=== PATIENT | female | born 1945 | race Two or more races ===

== ENCOUNTER 2017-09-17 16:22 | Emergency (ER) | payer MEDICARE, OTHER ==
[~2017-09-17] VITALS: Ht 162.6 cm; Wt 60.8 kg
--- NOTE | 2017-09-17 16:35 | NUR ---
BB PRIVATE EMS FROM [facility] FOR ANEMIA H/H-7.4/22.2. PATIENT A/OX 1. BREATHING EVEN AND UNLABORED. NO SOB. VITALS STABLE. SAFETY AND COMFORT MEASURES IN PLACE. AWAITING MD ORDERS.
--- NOTE | 2017-09-17 16:50 | NUR ---
NEW IV STARTED ON RFA, 20 G.
[2017-09-17 16:58] LABS: BASOPHILS # (AUTO) 0.1 /CMM (0.0-0.2); BASOPHILS % (AUTO) 1.3 % (0.0-2.0); EOSINOPHILS # (AUTO) 0.4 /CMM (0.0-0.7); EOSINOPHILS % (AUTO) 3.6 % (0.0-6.0); HEMATOCRIT 27 % (33-45); HEMOGLOBIN 9.4 g/dL (11.5-14.8); LYMPHOCYTES # (AUTO) 2.1 /CMM (0.8-4.8); LYMPHOCYTES % (AUTO) 20.2 % (20.0-44.0); MEAN CORPUSCULAR HEMOGLOBIN 37 PG (26.0-33.0); MEAN CORPUSCULAR HGB CONC 35 g/dl (31.0-36.0); MEAN CORPUSCULAR VOLUME 107 fL (82-100); MONOCYTES # (AUTO) 0.8 /CMM (0.1-1.30); MONOCYTES % (AUTO) 7.2 % (2.0-12.0); NEUTROPHILS # (AUTO) 7.2 /CMM (1.8-8.9); NEUTROPHILS % (AUTO) 67.7 % (43.0-81.0); PLATELET COUNT (AUTO) 335 /CMM (150-450); RDW COEFFICIENT OF VARIATION 13.5 (11.5-15.0); RED BLOOD CELL COUNT(AUTO) 2.53 MIL/uL (4.0-5.2); WHITE BLOOD COUNT (AUTO) 10.6 K/uL (4.3-11.0)
[2017-09-17 17:03] LABS: CALCIUM, SERUM 10.5 mg/dL (8.5-10.1); CARBON DIOXIDE 28 mmol/L (21-32); CHLORIDE 96 mmol/L (98-107); CREATININE 1.3 mg/dL (0.6-1.3); GLUCOSE 176 mg/dL (74-106); POTASSIUM 5.1 mmol/L (3.5-5.1); SODIUM SERUM 130 mmol/L (136-145); UREA NITROGEN, BLOOD 41 mg/dL (7-18)
[2017-09-17 17:13] LABS: TROPONIN I < 0.017 ng/mL (0.00-0.056)
--- NOTE | 2017-09-17 17:19 | NUR ---
CALLED RN SUPP FOR BED
[2017-09-17] MEDS ORDERED: IV NS 0.9% 1,000 ML BAG IV ONE (17:30)
--- NOTE | 2017-09-17 17:40 | NUR ---
EPIC PAGED DR DYE FOR DR ANGELA
--- NOTE | 2017-09-17 18:02 | NUR ---
CALLED [facility] FOR TRANSPORT TO [facility] ETA 60 MINUTES
[2017-09-17] MEDS ORDERED: IV NS 0.9% 1,000 ML IV PRN (18:05)
[2017-09-17] MEDS ORDERED: HYDROCODONE/APAP 5/325MG 1 EACH TABLET PO PRN (18:30)
[2017-09-17] MEDS ORDERED: MAG HYDROX/AL HYDROX/SIMETH 30 ML UDC PO PRN (18:30)
[2017-09-17] MEDS ORDERED: MAGNESIUM HYDROXIDE 30 ML UDC PO PRN (18:30)
[2017-09-17] MEDS ORDERED: ZOLPIDEM TARTRATE 5 MG TABLET PO PRN (18:30)
[2017-09-17] MEDS ORDERED: ONDANSETRON HCL/PF 4 MG/2 ML VIAL IVP PRN (18:30)
[2017-09-17] MEDS ORDERED: Z GUARD REMEDY 2 OZ OINT TP PRN (18:30)
[2017-09-17] MEDS ORDERED: ACETAMINOPHEN 325 MG TABLET PO PRN (18:30)
--- NOTE | 2017-09-17 19:16 | NUR ---
Report given to Virgil STEWARD for LEONORA.
--- NOTE | 2017-09-17 19:17 | NUR ---
RECEIVED REPORT FROM BIN CASTAÑEDA FOR LEONORA. PT APPEARS COMFORTABLE. AT BEDSIDE.
--- NOTE | 2017-09-17 19:34 | NUR ---
CALLED [facility]ERTON[facility] FOR UPDATED ETA OF 15 MINUTES
--- NOTE | 2017-09-17 19:47 | NUR ---
REPORT GIVEN TO EMT FROM [facility] FOR LEONORA. PT VSS. PT NONVERABLE, AWARE OF TRANSFER. PT WITH ALL PERSONAL BELONGINGS. IV REMOVED, CATHETER INTACT AND SITE BENIGN, PRESSURE AND 4X4 APPLIED TO SITE, NO BLEEDING NOTED. PT TO BE TRANSFERED TO [facility]
[2017-09-17 19:52] VITALS: BP 107/66
[2017-09-18] MEDS ORDERED: PANTOPRAZOLE 40 MG VIAL IV SCH (09:00)
== END 2017-09-17 19:53 | disposition home or self-care (01) ==
LOC: ER 16:24
DX: D64.9 Anemia, unspecified (principal); G93.40 Encephalopathy, unspecified; E87.1 Hypo-osmolality and hyponatremia; E03.9 Hypothyroidism, unspecified; E11.9 Type 2 diabetes mellitus without complications; E78.5 Hyperlipidemia, unspecified; I11.0 Hypertensive heart disease with heart failure; I50.9 Heart failure, unspecified; Z86.73 Personal history of transient ischemic attack (TIA), and cerebral infarction without residual deficits; Z88.0 Allergy status to penicillin
CPT/HCPCS: 36415; 71010; 80048; 84484; 85025; 93005; 96360; 99285; A4606; J7030; Z7610

== ENCOUNTER 2018-05-30 21:47 | Inpatient (IN) | payer MEDICARE, OTHER ==
[~2018-05-30] VITALS: Ht 152.4 cm; Wt 67.8 kg
--- NOTE | 2018-05-30 21:56 | NUR ---
PT TO ER BED 1. BIBPA FROM SNF C/O N/V X 6 HOURS. PT PLACED IN GOWN AND ON COAT CUTTER. VSS/RESP EVEN UNLABORED/NAD NOTED/SKIN WARM AND DRY/AFEBRILE/PT NONVERBAL W/DEMENTIA. AWAITNG MD SALAS.
--- NOTE | 2018-05-30 22:16 | NUR ---
AT BEDSIDE FOR EVAL.
--- NOTE | 2018-05-30 22:26 | NUR ---
EMT AT BEDSIDE FOR EKG.
[2018-05-30] MEDS ORDERED: IV NS 0.9% 500 ML BAG IV ONE (22:30)
[2018-05-30] MEDS ORDERED: ONDANSETRON HCL/PF 4 MG/2 ML VIAL IVP ONE (22:30)
--- NOTE | 2018-05-30 22:40 | NUR ---
18G IV TO R HAND X 2 ATTEMPTS USING ASEPTIC TECH. IV FLUSHES EASILY WITH NS, NO S/S INFILTRATION NOTED AT THIS TIME. LAB AT BEDSIDE TO DRAW.
[2018-05-30] MEDS ORDERED: ASCO500T9 GT (22:48)
[2018-05-30] MEDS ORDERED: CYAN10009 GT (22:48)
[2018-05-30] MEDS ORDERED: EZET1TAB26 GT (22:48)
[2018-05-30] MEDS ORDERED: NITR0.4T48 SL (22:48)
[2018-05-30] MEDS ORDERED: BACL5TAB GT (22:48)
[2018-05-30] MEDS ORDERED: FOLI1TAB16 GT (22:48)
[2018-05-30] MEDS ORDERED: MUPI1OIN NS (22:48)
[2018-05-30] MEDS ORDERED: COLL30OI TP (22:48)
[2018-05-30] MEDS ORDERED: FENO145T GT (22:48)
[2018-05-30] MEDS ORDERED: GLIM2TAB GT (22:48)
[2018-05-30] MEDS ORDERED: ONDA4TAB5 GT (22:48)
[2018-05-30] MEDS ORDERED: IPRA3AMP23 IH (22:48)
[2018-05-30] MEDS ORDERED: LISI-607 GT (22:48)
[2018-05-30] MEDS ORDERED: LEVO75TA7 GT (22:48)
[2018-05-30] MEDS ORDERED: BENEFIBER GT (22:48)
[2018-05-30] MEDS ORDERED: SODI1POW44 GT (22:48)
[2018-05-30] MEDS ORDERED: FERR300L GT (22:48)
[2018-05-30] MEDS ORDERED: MULT9LIQ GT (22:48)
[2018-05-30] MEDS ORDERED: CIPR5DRO LEFTEYE (22:48)
[2018-05-30] MEDS ORDERED: ACYC800T GT (22:48)
[2018-05-30] MEDS ORDERED: LANS30CA54 GT (22:48)
[2018-05-30] MEDS ORDERED: ASPI-1169 GT (22:48)
[2018-05-30] MEDS ORDERED: DOCU50LI GT (22:48)
[2018-05-30] MEDS ORDERED: INSU100V7 SQ (22:48)
[2018-05-30] MEDS ORDERED: MAGN400O21 GT (22:48)
[2018-05-30] MEDS ORDERED: CLOP75TA15 GT (22:48)
[2018-05-30] MEDS ORDERED: L.AC460C GT (22:48)
[2018-05-30] MEDS ORDERED: LINA5TAB GT (22:48)
[2018-05-30] MEDS ORDERED: BISA10SU8 RC (22:48)
[2018-05-30] MEDS ORDERED: INSU100I4 SQ (22:48)
[2018-05-30] MEDS ORDERED: ACET325C5 GT (22:48)
[2018-05-30] MEDS ORDERED: ONDANSETRON HCL/PF 4 MG/2 ML VIAL ONE ×2 (22:53→23:51)
--- NOTE | 2018-05-30 23:00 | NUR ---
16FR F/C INSERTED USING BELT LOOP MACHINE OPERATOR, NOTED URINE OUTPUT OF 100ML. URINE PALE AND CLEAR. URINE SPECIMEN OBTAINED AND SENT TO THE LAB.
[2018-05-30 23:06] LABS: CALCIUM, SERUM 10.7 mg/dL (8.5-10.1); CARBON DIOXIDE 29 mmol/L (21-32); CHLORIDE 98 mmol/L (98-107); CREATININE 2.2 mg/dL (0.6-1.3); GLUCOSE 128 mg/dL (74-106); POTASSIUM 4.3 mmol/L (3.5-5.1); SODIUM SERUM 133 mmol/L (136-145); UREA NITROGEN, BLOOD 41 mg/dL (7-18)
--- NOTE | 2018-05-30 23:08 | NUR ---
PT TO CT VIA STRETCHER, VSS.
[2018-05-30 23:09] LABS: BASOPHILS % (AUTO) 0.1 % (0.0-2.0); EOSINOPHILS % (AUTO) 0.4 % (0.0-6.0); HEMATOCRIT 32 % (33-45); HEMOGLOBIN 10.6 g/dL (11.5-14.8); LYMPHOCYTES # (AUTO) 0.8 /CMM (0.8-4.8); LYMPHOCYTES % (AUTO) 6.8 % (20.0-44.0); MEAN CORPUSCULAR HEMOGLOBIN 34 PG (26.0-33.0); MEAN CORPUSCULAR HGB CONC 33 g/dl (31.0-36.0); MEAN CORPUSCULAR VOLUME 103 fL (82-100); MONOCYTES # (AUTO) 0.5 /CMM (0.1-1.30); MONOCYTES % (AUTO) 4.7 % (2.0-12.0); NEUTROPHILS # (AUTO) 9.8 /CMM (1.8-8.9); PLATELET COUNT (AUTO) 309 /CMM (150-450); RDW COEFFICIENT OF VARIATION 14.8 (11.5-15.0); RED BLOOD CELL COUNT(AUTO) 3.11 MIL/uL (4.0-5.2); WHITE BLOOD COUNT (AUTO) 11.2 K/uL (4.3-11.0)
[2018-05-30 23:12] LABS: ALANINE AMINOTRANSFERASE 35 U/L (12-78); ALBUMIN 3.6 g/dL (3.4-5.0); ALKALINE PHOSPHATASE 67 U/L (46-116); ASPARTATE AMINOTRANSFERASE 26 U/L (15-37); BILIRUBIN,DIRECT 0.2 mg/dL (0.0-0.2); BILIRUBIN,TOTAL 0.4 mg/dL (0.2-1.0)
[2018-05-30 23:14] LABS: TROPONIN I < 0.017 ng/mL (0.00-0.056)
[2018-05-30] MEDS ORDERED: DIATR MEGLU/DIATRIZOATE SODIUM 30 ML BOTTLE (GASTROGRAPHIN) ONE (23:56)
[2018-05-31] MEDS ORDERED: ONDANSETRON HCL/PF 4 MG/2 ML VIAL IV ONE
--- NOTE | 2018-05-31 00:05 | NUR ---
XRAY AT BEDSIDE.
[2018-05-31 00:14] LABS: APPEARANCE,URINE SL CLOUDY (CLEAR); BILIRUBIN,URINE NEGATIVE (NEGATIVE); BLOOD, URINE NEGATIVE Ery/uL (NEGATIVE); COLOR,URINE YELLOW (YELLOW); KETONES,URINE NEGATIVE (NEGATIVE); LEUKOCYTE ESTERASE ,URINE NEGATIVE (NEGATIVE); NITRITE, URINE NEGATIVE (NEGATIVE); PROTEIN,URINE TRACE mg/dl (NEGATIVE); UGLUCOSE NEGATIVE (NEGATIVE); UROBILINOGEN,URINE 0.2 EU/dL (0.2)
[2018-05-31 00:23] LABS: BACTERIA,URINE None seen /HPF (None Seen); RBC,URINE 0-2 /HPF (0-2); SQUAMOUS EPITHELIAL CELL,UR Few /HPF (None Seen); URINE AMORPHOUS PHOSPHATES Few /HPF (None Seen); WBC,URINE 0-2 /HPF (0-3)
[2018-05-31 00:24] LABS: HYALINE CASTS, URINE Few /LPF (None Seen); MUCUS,URINE Few /LPF (None Seen)
[2018-05-31] MEDS ORDERED: AZTREONAM 1 G VIAL ONE (00:26)
[2018-05-31] MEDS ORDERED: AZTREONAM 1 G in IV NS 0.9% 100 ML IV ONE (00:30)
[2018-05-31] MEDS ORDERED: LEVOFLOXACIN 750 MG /D5W 150ML PIGGYBACK IV ONE (00:30)
--- NOTE | 2018-05-31 00:49 | NUR ---
REPORT GIVEN TO BIN BURROUGHS FOR LEONORA. PT TBA TO TELE 325.2.
--- NOTE | 2018-05-31 01:10 | NUR ---
LEVAQUIN 750MG IV ENDORSED TO FLOOR NURSE.
[2018-05-31 01:30] VITALS: BP 131/74
[2018-05-31] MEDS ORDERED: MAGNESIUM HYDROXIDE 30 ML UDC PO PRN (01:30)
[2018-05-31] MEDS ORDERED: MAG HYDROX/AL HYDROX/SIMETH 30 ML UDC PO PRN (01:30)
[2018-05-31] MEDS ORDERED: ACETAMINOPHEN 325 MG TABLET PO PRN (01:30)
[2018-05-31] MEDS ORDERED: BISACODYL SUPP (10 MG) 10 MG/SUPP.RECT SUPP.RECT RC SCH (01:30)
[2018-05-31] MEDS ORDERED: HYDROCODONE/APAP 5/325MG 1 EACH TABLET PO PRN (01:30)
[2018-05-31] MEDS ORDERED: NITROGLYCERIN 0.4 MG/TAB BOTTLE SL PRN (01:30)
[2018-05-31] MEDS ORDERED: Z GUARD REMEDY 2 OZ OINT TP PRN (01:30)
[2018-05-31] MEDS ORDERED: DEXTROSE 50%-WATER 50 ML DISP.SYRIN IV PRN (01:30)
[2018-05-31] MEDS ORDERED: Medication Not On Formulary EA (Ipratropium/Albuterol Sulfate (Duoneb 2.5-0.5 Mg/3 Ml So IH SCH (01:30)
[2018-05-31] MEDS ORDERED: ONDANSETRON HCL/PF 4 MG/2 ML VIAL IVP PRN (01:30)
--- NOTE | 2018-05-31 01:30 | NUR ---
MARSHMALLOW MACHINE OPERATOR NOTES RECEIVED PT FROM ER VIA GURNEY TRANSFERRED TO BED SAFELY. PT'S EYES CLOSED , OPENS EYES OCCASIONALLY TO TACTILE STIMULI. NON VERBAL PER AT BEDSIDE, WHICH IS PT'S BASELINE. NO DISTRESS , NO SOB NOTED. RESPIRATION IS EVEN AND UNLABORED. IV SITE ON RIGHT HAND INTACT INTACT AND PATENT, NO S/S OF INFILTRATION NOTED. IV ABX STARTED IN ER , INFUSING AT THIS TIME. NO S/S OF PAIN OR DISCOMFORT AT THIS TIME. FC IS INTACT AND PATENT DRAINING WITH YELLOW URINE GT IS INTACT AND PATENT. COMPLETE BODY CHECK DONE. ALL NEEDS ANTICIPATED AND ATTENDED. SAFETY AND ASPIRATION PRECAUTION OBSERVED. WILL CONT TO MONITOR.
[2018-05-31 02:00] VITALS: BP 131/74
[2018-05-31] MEDS ORDERED: VANCOMYCIN 1 GM in IV NS 0.9% 250 ML IV ONE (02:00)
--- NOTE | 2018-05-31 02:00 | NUR ---
PT SR 62 ON TELE MONITOR.
[2018-05-31] MEDS ORDERED: MEROPENEM 500 MG VIAL IV ONE (02:48)
[2018-05-31] MEDS ORDERED: VANCOMYCIN 1 GM VIAL ONE (02:49)
--- NOTE | 2018-05-31 02:53 | NUR ---
PLACED A CALL TO ORIN SCHMITT REGARDING CLARIFICATION OF IV ABX , PER ORIN SCHMITT JUST GIVE THE MERREM AND VANCOMYCIN IV , NO NEED TO GIVE LEVAQUIN ORDER FROM ER. ALSO INFORMED ORIN SCHMITT REGARDING PT'S REFUSING FOR ACYCLOVIR MEDICATION VIA GT , BUT PER OK TO RECEIVE ANTIVIRAL ANTIBIOTIC. PER ORIN TO HOLD GTF FOR NOW D/T PT'S EPISODE OF VOMITTING MATERIAL PREPARATION WORKER. CHARGE NURSE MANJEET LANDERS.
[2018-05-31] MEDS: IV NS 0.9% 1,000 ML IV PRN ×2 (03:08→16:48)
[2018-05-31] MEDS: MEROPENEM 500 MG in IV NS 0.9% 50 ML IV SCH ×3 (03:15→16:08)
--- NOTE | 2018-05-31 04:13 | NUR ---
PLACED A CALL TO PHARMACY AFTER HOUR AND SPOKE WITH DEE PHARMACIST , PER JENN PRICE TO GIVE VANCO AT THIS TIME, ALSO INFORMED HER REGARDING LATE ADMINISTRATION OF MERREM, D/T PT NEW ADMIT, AND NEED TO RENDER CARE FIRST AT BEDSIDE, PER OVI PRICE'S ADVICE TO SKIP 5 AM DOSE OF MERREM DUE TO PT'S RENAL FXN, AND CONT THE NEXT DOSE TO COMPLY TO HOSPITAL ADMINISTRATION TIME.
[2018-05-31] MEDS: BLOOD SUGAR DIAGNOSTIC 1 EACH STRIP IN SCH ×4 (06:17→21:50)
--- NOTE | 2018-05-31 06:33 | NUR ---
PT'S BS : 168 AT THIS TIME, INSULIN COVERAGE NOT GIVEN AT THIS TIME, DUE TO GTF ON HOLD PER MD. WILL ENDORSE TO NEXT SHIFT ACCORDINGLY.
--- NOTE | 2018-05-31 06:50 | NUR ---
BRAND EXECUTIVE NOTES PT RESTING AT THIS TIME, APPEARS COMFORTABLE. NON VERBAL. OPENS EYES. NO DISTRESS , NO SOB NOTED. RESPIRATION IS EVEN AND UNLABORED. IV SITE ON RIGHT HAND INTACT INTACT AND PATENT, NO S/S OF INFILTRATION NOTED. IVF INFUSING AT THIS TIME. NO S/S OF PAIN OR DISCOMFORT AT THIS TIME. FC IS INTACT AND PATENT DRAINING WITH YELLOW URINE GT IS INTACT AND PATENT. ALL NEEDS ANTICIPATED AND ATTENDED. SAFETY AND ASPIRATION PRECAUTION OBSERVED. WILL ENDORSE TO NEXT SHIFT FRO LEONORA. .
[2018-05-31] MEDS: ACYCLOVIR 800 MG TABLET GT SCH ×5 (07:00→21:00)
--- NOTE | 2018-05-31 07:14 | NUR ---
PT'S REFUSED ZOVIRAX VIA GT, RISK AND BENEFITS EXPLAINED, STILL REFUSED X 3. EDUCATION GIVEN . WILL ENDORSE TO NEXT SHIFT ACCORDINGLY.
--- NOTE | 2018-05-31 07:56 | NUR ---
SALES ADMINISTRATION SPECIALIST OPENING NOTES RECEIVED PT LAYING IN BED WITH HOB ELEVATED. PT IS NONVERBAL BUT WITH SPONTANEOUS EYE OPENING. AT BEDSIDE.. RESPIRATIONS ARE EVEN AND UNLABORED, NOT IN ANY ACUTE DISTRESS NOTED. NO FACIAL GRIMACING OR MOANING NOTED. IV SITE INTACT, NO INFILTRATION NOTED. DRESSING KEPT CLEAN AND DRY. SAFETY MEASURES ARE IN PLACE. CALL LIGHT IS LEFT WITHIN REACH. WILL CONTINUE TO MONITOR THROUGHOUT SHIFT FOR CONTINUITY OF CARE.
[2018-05-31 08:00] VITALS: BP 127/65
[2018-05-31] MEDS: FERROUS SULFATE UDC 300 MG/5 ML UDC GT SCH (09:00)
[2018-05-31] MEDS: CLOPIDOGREL BISULFATE 75 MG TABLET GT SCH (09:00)
[2018-05-31] MEDS: ASPIRIN 81 MG TAB.CHEW GT SCH (09:00)
[2018-05-31] MEDS: BACLOFEN (10 MG) 10 MG TABLET GT SCH ×2 (09:00→16:57)
[2018-05-31] MEDS: LINAGLIPTIN 5 MG TABLET GT SCH (09:00)
[2018-05-31] MEDS: BENEFIBER 4 GM 1 EA PACKET GT SCH ×2 (09:00→16:57)
[2018-05-31] MEDS: FOLIC ACID 1 MG TABLET GT SCH (09:00)
[2018-05-31] MEDS: LEVOTHYROXINE SODIUM 75 MCG TABLET GT SCH (09:00)
[2018-05-31] MEDS ORDERED: Medication Not On Formulary EA (Lansoprazole (Prevacid) 30 MG) GT SCH (09:00)
[2018-05-31] MEDS: ASCORBIC ACID 500 MG TABLET GT SCH (09:00)
[2018-05-31] MEDS ORDERED: LISINOPRIL (5MG) 5 MG TABLET GT SCH (09:00)
[2018-05-31] MEDS: DOCUSATE SODIUM LIQ 100 MG/10 ML UDC GT SCH ×2 (09:00→16:57)
[2018-05-31] MEDS: CYANOCOBALAMIN 500 MCG TABLET GT SCH (09:00)
[2018-05-31] MEDS ORDERED: COLLAGENASE 15 GM TUBE TP SCH (09:00)
[2018-05-31] MEDS: FENOFIBRATE NANOCRYS (145 MG) 145 MG TABLET GT SCH (09:00)
[2018-05-31] MEDS: MULTIVIT, IRON, MIN NO. 8, FA 1 TAB GT SCH (09:00)
--- NOTE | 2018-05-31 09:32 | NUR ---
MS RN NOTES PT REMAINS NPO. VITAL SIGNS ARE WNL. WILL CONTINUE TO MONITOR.
[2018-05-31 10:04] LABS: CALCIUM, SERUM 9.4 mg/dL (8.5-10.1); CARBON DIOXIDE 27 mmol/L (21-32); CHLORIDE 101 mmol/L (98-107); CREATININE 1.9 mg/dL (0.6-1.3); GLUCOSE 139 mg/dL (74-106); POTASSIUM 4.1 mmol/L (3.5-5.1); SODIUM SERUM 135 mmol/L (136-145); UREA NITROGEN, BLOOD 37 mg/dL (7-18)
[2018-05-31] MEDS ORDERED: FEE PK DOSING 1 MIN EA MC ONE (10:32)
[2018-05-31] MEDS ORDERED: HYDROCODONE/APAP 5/325MG 1 EACH TABLET GT PRN (10:57)
[2018-05-31] MEDS ORDERED: MAGNESIUM HYDROXIDE 30 ML UDC GT PRN (10:57)
[2018-05-31] MEDS ORDERED: MAG HYDROX/AL HYDROX/SIMETH 30 ML UDC GT PRN (10:58)
[2018-05-31] MEDS ORDERED: ACETAMINOPHEN 650 MG/20.3 ML UDC PO PRN (11:00)
--- NOTE | 2018-05-31 11:12 | NUR ---
Received a call from RN regarding TF recommendation. Per RN, pt was on Glucerna 1.2 @60ml/hr HAIR SPINNING MACHINE OPERATOR and MD wants to resume TF at very low rate due to pt vomited x 6 yesterday. Advised RN to start Glucerna 1.2 @20ml/hr as tolerates. Will monitor TF tolerance closely. RD will complete nutrition initial assessment, per protocol.
[2018-05-31] MEDS: ACIDOPHILUS/BULGARICUS 1 EACH TAB.CHEW GT SCH (11:38)
[2018-05-31] MEDS: GLUCERNA 1.2 1,000 ML BOTTLE GT PRN (11:38)
--- NOTE | 2018-05-31 11:54 | NUR ---
MS RN NOTES REFUSES FOR RN TO ADMINISTER ZOVIROX. PER SR. PRICING ANALYST, JUAN RODRIGUES MADE AWARE. DR. KAYE ALSO MADE AWARE THIS AM.
[2018-05-31] MEDS: K PHOS NEUTRAL 250 MG TABLET GT SCH ×2 (14:06→16:57)
[2018-05-31] MEDS: CIPROFLOXACIN HCL 0.3% 5 ML BOTTLE LEFTEYE SCH ×3 (14:06→21:52)
[2018-05-31 16:00] VITALS: BP 115/68
[2018-05-31] MEDS: VANCOMYCIN 0.75 GM in IV D5W 250 ML IV SCH (16:48)
--- NOTE | 2018-05-31 17:36 | NUR ---
MS RN NOTES PT HAS BEEN RESTING QUIETLY WITH AT BEDSIDE. PT REPOSITIONED Q2H TO PREVENT FURTHER SKIN ISSUES. HOB KEPT ELEVATED TO PREVENT ASPIRATION AND VOMITING. PT IS NOT IN ANY ACUTE DISTRESS NOTED. WILL CONTINUE TO MONITOR.
--- NOTE | 2018-05-31 18:28 | NUR ---
MS RN NOTES ALL NEEDS MET AND ANTICIPATED. PT REMAINS NONVERBAL WITH SPONTANEOUS EYE OPENING. RESPIRATIONS ARE EVEN AND UNLABORED, NOT IN ANY ACUTE DISTRESS NOTED. NO FACIAL GRIMACING, NO VOMITING NOTED DURING SHIFT. AT BEDSIDE. REMINDED DR. KAYE THAT CONTINUES TO REFUSE ACYCLOVIR. PER DR. KAYE "HE CAN REFUSE, CONTINUE TO EDUCATE . IT IS A NORMAL DOSE AND IT SHOULD BE FOR 7 DAYS." EDUCATED AND CONTINUES TO REFUSE. IV SITE TO RIGHT HAND INTACT, NO INFILTRATION NOTED. IV FLUIDS INFUSING AND TOLERATING WELL. GTUBE INTACT, FREE OF KINKS. PT TOLERATING GTUBE FEEDING WITH HOB KEPT ELEVATED. SAFETY MEASURES ARE IN PLACE. WILL ENDORSE TO NEXT SHIFT FOR CONTINUITY OF CARE.
[2018-05-31 20:00] VITALS: BP 124/62
--- NOTE | 2018-05-31 20:00 | NUR ---
PT AWAKE ,NON VERBAL,PT WITH ASSISTING WITH ALL NEEDS. REFUSED SOME OF PT MEDS TO BE GIVEN, PT ON GT FEEDING TOLERATING WELL NO RESIDUAL, AND IV FLUIDS INFUSING WELL TO RIGHT HAND, CONTINUE WITH ANTIBIOTICS. KEPT CLEAN AND DRY, NO BM, BERMAN DRAINING WELL .REPOSITIONED FOR COMFORT ON AIRLOSS MATTRESS.CONTACT PRECAUTION OBSERVED FOR SHINGLES.LESIONS IN THE FACE ALL DRY AND CRUSTED. WILL CONTINUE TO MONITOR,VSS,AFEBRILE.
[2018-05-31] MEDS: EZETIMIBE 10 MG TABLET GT SCH (21:41)
[2018-05-31] MEDS: SIMVASTATIN 20 MG TABLET GT SCH (21:41)
[2018-05-31] MEDS: INSULIN GLARGINE, 100 UNIT/ML CARTRIDGE SQ SCH (21:43)
[2018-05-31] MEDS ORDERED: EZETIMIBE GT SCH (22:00)
[2018-05-31] MEDS ORDERED: SIMVASTATIN GT SCH (22:00)
[2018-06-01] MEDS: CIPROFLOXACIN HCL 0.3% 5 ML BOTTLE LEFTEYE SCH ×6 (01:00→21:32)
[2018-06-01] MEDS: MEROPENEM 500 MG in IV NS 0.9% 50 ML IV SCH ×2 (03:38→16:14)
[2018-06-01] MEDS: ACYCLOVIR 800 MG TABLET GT SCH ×5 (07:00→21:00)
--- NOTE | 2018-06-01 07:00 | NUR ---
PT SLEPT WELL OVERNIGHT, TOLERATING FEEDING, KEPT CLEAN AND DRY , AM CARE DONE AND NOTED BERMAN LEAKING, STILL INTACT AND SECURED, WILL CONTINUE TO MONITOR.MEPILEX CHANGE SACRAL REDNESS REMAINS THE SAME CLEAN AND DRY AND SCALING.KEPT COMFORTABLE ,SUCTIONED PRN ORALLY.
[2018-06-01] MEDS: BLOOD SUGAR DIAGNOSTIC 1 EACH STRIP IN SCH ×4 (07:09→22:15)
[2018-06-01 07:42] LABS: BASOPHILS # (AUTO) 0.1 /CMM (0.0-0.2); BASOPHILS % (AUTO) 0.9 % (0.0-2.0); HEMATOCRIT 28 % (33-45); HEMOGLOBIN 9.6 g/dL (11.5-14.8); LYMPHOCYTES # (AUTO) 1.1 /CMM (0.8-4.8); LYMPHOCYTES % (AUTO) 13.4 % (20.0-44.0); MEAN CORPUSCULAR HEMOGLOBIN 35 PG (26.0-33.0); MEAN CORPUSCULAR HGB CONC 34 g/dl (31.0-36.0); MEAN CORPUSCULAR VOLUME 103 fL (82-100); MONOCYTES # (AUTO) 0.7 /CMM (0.1-1.30); MONOCYTES % (AUTO) 8.8 % (2.0-12.0); NEUTROPHILS # (AUTO) 6.1 /CMM (1.8-8.9); NEUTROPHILS % (AUTO) 75.9 % (43.0-81.0); PLATELET COUNT (AUTO) 279 /CMM (150-450); RED BLOOD CELL COUNT(AUTO) 2.73 MIL/uL (4.0-5.2); WHITE BLOOD COUNT (AUTO) 8.1 K/uL (4.3-11.0)
[2018-06-01 08:00] VITALS: BP 99/50
[2018-06-01 08:00] LABS: CALCIUM, SERUM 8.9 mg/dL (8.5-10.1); CARBON DIOXIDE 28 mmol/L (21-32); CHLORIDE 105 mmol/L (98-107); CREATININE 1.5 mg/dL (0.6-1.3); GLUCOSE 78 mg/dL (74-106); MAGNESIUM 1.9 mg/dL (1.8-2.4); PHOSPHORUS 3.1 mg/dL (2.5-4.9); POTASSIUM 3.7 mmol/L (3.5-5.1); SODIUM SERUM 141 mmol/L (136-145); UREA NITROGEN, BLOOD 27 mg/dL (7-18)
[2018-06-01 08:14] LABS: CHOLESTEROL 139 mg/dL (<200); HDL CHOLESTEROL 37 mg/dL (40-60); LDL 77 mg/dL (0-99); THYROID STIMULATING HORMONE 18.219 uIU/mL (0.358-3.74); TRIGLYCERIDES 222 mg/dL (30-150)
[2018-06-01] MEDS: LEVOTHYROXINE SODIUM 75 MCG TABLET GT SCH (08:38)
[2018-06-01] MEDS: CYANOCOBALAMIN 500 MCG TABLET GT SCH (08:39)
[2018-06-01] MEDS: PANTOPRAZOLE 40 MG/PACK PACK GT SCH (08:39)
[2018-06-01] MEDS: BACLOFEN (10 MG) 10 MG TABLET GT SCH ×2 (08:39→16:15)
[2018-06-01] MEDS: K PHOS NEUTRAL 250 MG TABLET GT SCH ×3 (08:39→16:15)
[2018-06-01] MEDS: FOLIC ACID 1 MG TABLET GT SCH (08:39)
[2018-06-01] MEDS: CLOPIDOGREL BISULFATE 75 MG TABLET GT SCH (08:39)
[2018-06-01] MEDS: BENEFIBER 4 GM 1 EA PACKET GT SCH ×2 (08:39→16:15)
[2018-06-01] MEDS: ASCORBIC ACID 500 MG TABLET GT SCH (08:39)
[2018-06-01] MEDS: FERROUS SULFATE UDC 300 MG/5 ML UDC GT SCH (08:39)
[2018-06-01] MEDS: LINAGLIPTIN 5 MG TABLET GT SCH (08:39)
[2018-06-01] MEDS: MULTIVIT, IRON, MIN NO. 8, FA 1 TAB GT SCH (08:39)
[2018-06-01] MEDS: ACIDOPHILUS/BULGARICUS 1 EACH TAB.CHEW GT SCH (08:39)
[2018-06-01] MEDS: ASPIRIN 81 MG TAB.CHEW GT SCH (08:39)
[2018-06-01] MEDS: DOCUSATE SODIUM LIQ 100 MG/10 ML UDC GT SCH ×2 (08:39→16:15)
[2018-06-01] MEDS: FENOFIBRATE NANOCRYS (145 MG) 145 MG TABLET GT SCH (08:40)
[2018-06-01] MEDS: LEVOTHYROXINE SODIUM 125 MCG TABLET PO SCH (10:02)
[2018-06-01] MEDS: MUPIROCIN OINT 2% 22 GM TUBE SCH ×2 (12:30→21:08)
[2018-06-01] MEDS: IV NS 0.9% 1,000 ML IV PRN (13:30)
--- NOTE | 2018-06-01 15:16 | NUR ---
MS RN NOTES PT'S CONTINUES TO REFUSE ADMINISTRATION OF ACYCLOVIR TO PT. NO SIGNIFICANT CHANGES. WILL CONTINUE TO MONITOR THROUGHOUT SHIFT.
[2018-06-01] MEDS: VANCOMYCIN 0.75 GM in IV D5W 250 ML IV SCH (17:05)
--- NOTE | 2018-06-01 18:21 | NUR ---
MS RN CLOSING NOTES ALL DUE MEDS GIVEN, NEEDS MET AND RENDERED. AT BEDSIDE AND CONTINUES TO REFUSE ACYCLOVIR. PT IS NONVERBAL WITH EYES OPEN. PUPILS ARE REACTIVE TO LIGHT. RESPIRATIONS ARE EVEN AND UNLABORED, NOT IN ANY ACUTE DISTRESS NOTED. SATURATING 95% ON 2L/MIN VIA NC, TOLERATING WELL. NO N/V NOTED. ABLE TO TOELRATE GTUBE FEEDING @20ML/HR WITH HOB KEPT ELEVATED. IV SITE INTACT, DRESSING KEPT CLEAN AND DRY. IV INFUSING AT 75ML/HR AND TOLERATING WELL. SAFETY MEASURES ARE IN PLACE. WILL ENDORSE TO NEXT SHIFT FOR CONTINUITY OF CARE.
--- NOTE | 2018-06-01 19:11 | NUR ---
RN OPENING NOTES PATIENT RECEIVED IN BED, EYES OPEN WITH FLAT AFFECT. PT'S SPOUSE AT BEDSIDE. PT NOTED WITH NO SOB, BREATHING EVEN AND UNLABORED, NO FACIAL GRIMACING AND IN NO ACUTE DISTRESS. ALL PATIENT'S NEED ATTENDED TO AT THIS TIME, GTF INFUSING WELL ORDERED. PT RECEIVING IVF ON RHAND INFUSING ORDERED, INTACT AND PATENT. NOTED BERMAN CATHETER DRAINING WITH SMITA URINE. ALL PATIENT'S NEEDS ATTENDED TO AT THIS TIME. WILL CONTINUE TO MONITOR. HOB ELEVATED, PLACED BE DIN LOCKED POSITION, CALL LIGHT WITHIN REACH.
[2018-06-01 20:00] VITALS: BP 121/59
[2018-06-01] MEDS: SIMVASTATIN 20 MG TABLET GT SCH (21:33)
[2018-06-01] MEDS: EZETIMIBE 10 MG TABLET GT SCH (22:15)
[2018-06-01] MEDS: INSULIN GLARGINE, 100 UNIT/ML CARTRIDGE SQ SCH (22:43)
[2018-06-01] MEDS: IPRATROPIUM NEB FS 0.5 MG/2.5 ML AMPUL.NEB NEB PRN (23:52)
[2018-06-01] MEDS: ALBUTEROL FS 2.5 MG/3 ML VIAL.NEB NEB PRN (23:52)
[2018-06-02] MEDS: CIPROFLOXACIN HCL 0.3% 5 ML BOTTLE LEFTEYE SCH ×6 (01:21→21:08)
[2018-06-02] MEDS: MEROPENEM 500 MG in IV NS 0.9% 50 ML IV SCH (04:41)
[2018-06-02] MEDS: IV NS 0.9% 1,000 ML IV PRN ×2 (04:47→23:44)
[2018-06-02] MEDS: GLUCERNA 1.2 1,000 ML BOTTLE GT PRN (04:47)
[2018-06-02] MEDS: BLOOD SUGAR DIAGNOSTIC 1 EACH STRIP IN SCH ×4 (06:35→21:41)
[2018-06-02] MEDS: ACYCLOVIR 800 MG TABLET GT SCH ×6 (06:48→21:10)
--- NOTE | 2018-06-02 06:52 | NUR ---
RN CLOSING NOTES PATIENT IN BED, SLEPT INTERMITTENTLY THROUGHOUT THE SHIFT, IVF INFUSING WELL ORDERED, GTF INFUSING @ 20 ML .HR AND PT IS TOLERATING WELL. NO EPISODE OF VOMITING THROUGHOUT THE SHIFT. ALL PATIENT'S NEEDS ATTENDED TO, TURNED AND REPOSITIONED [id number], SKIN PROTECTION MEASURES IN PLACE. PT'S BERMAN CATHETER DRAINING WITH YELLOW URINE. WILL ENDORSE TO AM SHIFT NURSE FOR CONTINUITY OF CARE.
[2018-06-02 07:29] LABS: CALCIUM, SERUM 8.4 mg/dL (8.5-10.1); CARBON DIOXIDE 25 mmol/L (21-32); CHLORIDE 104 mmol/L (98-107); CREATININE 1.3 mg/dL (0.6-1.3); GLUCOSE 86 mg/dL (74-106); MAGNESIUM 1.7 mg/dL (1.8-2.4); PHOSPHORUS 2.7 mg/dL (2.5-4.9); POTASSIUM 3.5 mmol/L (3.5-5.1); SODIUM SERUM 136 mmol/L (136-145); UREA NITROGEN, BLOOD 18 mg/dL (7-18)
--- NOTE | 2018-06-02 07:30 | NUR ---
PT RECEIVED RESTING COMFORTABLY IN BED WITH EYES CLOSED. NO S/S OR C/O PAIN OR DISTRESS NOTED. SIDE RAILS UP X2, CALL LIGHT LEFT WITHIN REACH. WILL CONTINUE PLAN OF CARE.
[2018-06-02 07:47] LABS: BASOPHILS # (AUTO) 0.1 /CMM (0.0-0.2); BASOPHILS % (AUTO) 0.9 % (0.0-2.0); EOSINOPHILS % (AUTO) 1.6 % (0.0-6.0); HEMATOCRIT 30 % (33-45); HEMOGLOBIN 10.4 g/dL (11.5-14.8); LYMPHOCYTES # (AUTO) 1.1 /CMM (0.8-4.8); LYMPHOCYTES % (AUTO) 13.4 % (20.0-44.0); MEAN CORPUSCULAR HEMOGLOBIN 35 PG (26.0-33.0); MEAN CORPUSCULAR HGB CONC 34 g/dl (31.0-36.0); MEAN CORPUSCULAR VOLUME 103 fL (82-100); MONOCYTES # (AUTO) 0.7 /CMM (0.1-1.30); MONOCYTES % (AUTO) 8.8 % (2.0-12.0); NEUTROPHILS # (AUTO) 6.2 /CMM (1.8-8.9); NEUTROPHILS % (AUTO) 75.3 % (43.0-81.0); PLATELET COUNT (AUTO) 268 /CMM (150-450); RDW COEFFICIENT OF VARIATION 15.1 (11.5-15.0); RED BLOOD CELL COUNT(AUTO) 2.95 MIL/uL (4.0-5.2); WHITE BLOOD COUNT (AUTO) 8.2 K/uL (4.3-11.0)
[2018-06-02 08:00] VITALS: BP 145/72
[2018-06-02] MEDS: FERROUS SULFATE UDC 300 MG/5 ML UDC GT SCH (08:41)
[2018-06-02] MEDS: CYANOCOBALAMIN 500 MCG TABLET GT SCH (08:42)
[2018-06-02] MEDS: FOLIC ACID 1 MG TABLET GT SCH (08:42)
[2018-06-02] MEDS: ACIDOPHILUS/BULGARICUS 1 EACH TAB.CHEW GT SCH (08:42)
[2018-06-02] MEDS: DOCUSATE SODIUM LIQ 100 MG/10 ML UDC GT SCH ×2 (08:42→15:51)
[2018-06-02] MEDS: ASCORBIC ACID 500 MG TABLET GT SCH (08:42)
[2018-06-02] MEDS: MULTIVIT, IRON, MIN NO. 8, FA 1 TAB GT SCH (08:42)
[2018-06-02] MEDS: K PHOS NEUTRAL 250 MG TABLET GT SCH ×3 (08:42→16:01)
[2018-06-02] MEDS: ASPIRIN 81 MG TAB.CHEW GT SCH (08:42)
[2018-06-02] MEDS: PANTOPRAZOLE 40 MG/PACK PACK GT SCH (08:43)
[2018-06-02] MEDS: LINAGLIPTIN 5 MG TABLET GT SCH (08:43)
[2018-06-02] MEDS: BACLOFEN (10 MG) 10 MG TABLET GT SCH ×2 (08:43→16:01)
[2018-06-02] MEDS: FENOFIBRATE NANOCRYS (145 MG) 145 MG TABLET GT SCH (08:43)
[2018-06-02] MEDS: CLOPIDOGREL BISULFATE 75 MG TABLET GT SCH (08:43)
[2018-06-02] MEDS: LEVOTHYROXINE SODIUM 125 MCG TABLET PO SCH (08:43)
[2018-06-02] MEDS: BENEFIBER 4 GM 1 EA PACKET GT SCH ×2 (08:43→15:51)
[2018-06-02] MEDS: MUPIROCIN OINT 2% 22 GM TUBE SCH ×2 (08:58→21:08)
[2018-06-02] MEDS: Magnesium 1GM/D5W 100ML PREMIX 100 ML IV SCH ×2 (11:19→12:28)
[2018-06-02] MEDS: VANCOMYCIN 0.75 GM in IV D5W 250 ML IV SCH (15:09)
[2018-06-02 16:00] VITALS: BP 117/76
[2018-06-02] MEDS: MEROPENEM 1 G in IV NS 0.9% 100 ML IV SCH (16:50)
[2018-06-02] MEDS: INSULIN REGULAR, HUMAN 100 UNIT/ML 3 ML VIAL SQ PRN (17:27)
--- NOTE | 2018-06-02 18:27 | NUR ---
CHANGE OF SHIFT REPORT PT RESTING COMFORTABLY IN BED. NO S/S OR C/O PAIN OR DISTRESS NOTED. SIDE RAILS UP X2, CALL LIGHT LEFT WITHIN REACH. PT KEPT CLEAN, DRY, AND COMFORTABLE. NO SIGNIFICANT CHANGES SINCE PREVIOUS SHIFT. WILL GIVE REPORT TO ROBERT STEWARD.
[2018-06-02 20:00] VITALS: BP 128/74
--- NOTE | 2018-06-02 20:00 | NUR ---
RN NOTES PATIENT IN BED, ALERT AND AWAKE, NON VERBAL, OPENS EYES, ON ORAL SUCTION PRN, LUNG SOUNDS HAS CRACKLES, DIMINISHED, SPO2 AT 2LPM VIA NC 100%, NOT IN APPARENT PAIN, NO FACIAL GRIMACING, NO RESTLESSNESS, ON AUSCULTATION, PEG TUBE IN PLACE, ZERO RESIDUAL, ON GLUCERNA 1.2 AT 20 CC/HR, MAY ADVANCE TO 55 CC/HR TOLERATED, INCREASED RATE TO 30 CC/HR. PEG TUBE SITE HAS REDNESS, DRESSING IS DRY AND INTACT. NOTED SCABS ON FOREHEAD AND AROUND EYES, ON CONTACT ISOLATION DUE TO SHINGLES AND ON ACYCLOVIR. BERMAN CATHETER IS DRAINING WELL WITH CLEAR AND YELLOW URINE, KEPT HOB ELEVATED, ON ASPIRATION PRECAUTION, AT THE BEDSIDE.
[2018-06-02] MEDS: SIMVASTATIN 20 MG TABLET GT SCH (21:11)
[2018-06-02] MEDS: EZETIMIBE 10 MG TABLET GT SCH (21:16)
[2018-06-02 22:00] VITALS: BP 128/74
[2018-06-02] MEDS: IPRATROPIUM NEB FS 0.5 MG/2.5 ML AMPUL.NEB NEB PRN (22:13)
[2018-06-02] MEDS: ALBUTEROL FS 2.5 MG/3 ML VIAL.NEB NEB PRN (22:13)
[2018-06-02] MEDS: INSULIN GLARGINE, 100 UNIT/ML CARTRIDGE SQ SCH (22:17)
--- NOTE | 2018-06-02 22:40 | NUR ---
RN NOTES REFUSED ZOCOR AND ACYCLOVIR, PER , ACYCLOVIR CAUSED SEDATION AND PATIENT WAS ASLEEP FOR A LONG TIME AND HARD TO AROUSE. ZOCOR CAUSES ABDOMINAL DISCOMFORT, PATIENT ON ZETIA.
--- NOTE | 2018-06-02 23:00 | NUR ---
RN NOTES REFUSED TO INCREASE PEG TUBE FEEDING TO 40 CC/HR, PER , "WILL WAIT TILL MORNING." PATIENT IS TOLERATING 30 CC/HR, NO RESIDUAL, GT FLUSHING WELL WITH WATER. WILL CONTINUE TO MONITOR
[2018-06-03] MEDS: CIPROFLOXACIN HCL 0.3% 5 ML BOTTLE LEFTEYE SCH ×5 (00:56→16:31)
[2018-06-03] MEDS: INSULIN REGULAR, HUMAN 100 UNIT/ML 3 ML VIAL SQ PRN ×4 (03:30→17:52)
[2018-06-03] MEDS: MEROPENEM 1 G in IV NS 0.9% 100 ML IV SCH ×2 (03:32→15:32)
[2018-06-03] MEDS: GLUCERNA 1.2 1,000 ML BOTTLE GT PRN (04:27)
--- NOTE | 2018-06-03 06:16 | NUR ---
RN NOTES PATIENT IS ALERT AND AWAKE, NO SOB, NO DISTRESS, NOT IN APPARENT PAIN, PEG TUBE FEEDING TOLERATED WELL, NO ABDOMINAL DISTENTION, NO VOMITING, NO ADVERSE CHANGE OF CONDITION DURING SHIFT, ALL NEEDS ATTENDED, CALL LIGHT WITHIN REACH.
[2018-06-03] MEDS: BLOOD SUGAR DIAGNOSTIC 1 EACH STRIP IN SCH ×3 (06:30→17:52)
--- NOTE | 2018-06-03 07:26 | NUR ---
MS RN OPENING NOTES PATIENT RECEIVED AWAKE IN BED IN NO ACUTE SIGNS OF DISTRESS. NON-VERBAL, OPEN EYES WITH FLAT AFFECT. ON 02 VIA N/C @ 2LPM, BREATHING EVEN AND UNLABORED, NO FACIAL GRIMACING OBSERVED AT THIS TIME. IV ACCESS ON RIGHT HAND INTACT AND PATENT, IVF OF NS @ 75ML/HR INFUSING WELL, NO S/S OF INFILTRATION NOTED. G-TUBE FEEDING INFUSING ORDERED AND TOLERATING WELL. ASPIRATION PRECAUTIONS MAINTAINED. BERMAN CATHETER IN PLACE DRAINING CLEAR YELLOW URINE TO URINARY BAG. SAFETY MEASURES IN PLACE. HOB ELEVATED, BED IN LOW/LOCKED POSITION WITH SIDE-RAILS UP X3. CALL LIGHT WITHIN REACH. WILL CONTINUE TO MONITOR.
[2018-06-03 07:32] LABS: CALCIUM, SERUM 8.8 mg/dL (8.5-10.1); CARBON DIOXIDE 25 mmol/L (21-32); CHLORIDE 107 mmol/L (98-107); CREATININE 1.2 mg/dL (0.6-1.3); GLUCOSE 123 mg/dL (74-106); MAGNESIUM 2.2 mg/dL (1.8-2.4); POTASSIUM 3.6 mmol/L (3.5-5.1); SODIUM SERUM 142 mmol/L (136-145); UREA NITROGEN, BLOOD 13 mg/dL (7-18)
[2018-06-03] MEDS: LEVOTHYROXINE SODIUM 125 MCG TABLET PO SCH (07:45)
[2018-06-03 08:00] VITALS: BP 105/56
[2018-06-03] MEDS: BENEFIBER 4 GM 1 EA PACKET GT SCH ×2 (08:31→16:31)
[2018-06-03] MEDS: LINAGLIPTIN 5 MG TABLET GT SCH (08:32)
[2018-06-03] MEDS: ASPIRIN 81 MG TAB.CHEW GT SCH (08:32)
[2018-06-03] MEDS: ASCORBIC ACID 500 MG TABLET GT SCH (08:32)
[2018-06-03] MEDS: FERROUS SULFATE UDC 300 MG/5 ML UDC GT SCH (08:32)
[2018-06-03] MEDS: K PHOS NEUTRAL 250 MG TABLET GT SCH ×3 (08:32→16:31)
[2018-06-03] MEDS: FENOFIBRATE NANOCRYS (145 MG) 145 MG TABLET GT SCH (08:32)
[2018-06-03] MEDS: CYANOCOBALAMIN 500 MCG TABLET GT SCH (08:32)
[2018-06-03] MEDS: ACIDOPHILUS/BULGARICUS 1 EACH TAB.CHEW GT SCH (08:32)
[2018-06-03] MEDS: FOLIC ACID 1 MG TABLET GT SCH (08:33)
[2018-06-03] MEDS: PANTOPRAZOLE 40 MG/PACK PACK GT SCH (08:33)
[2018-06-03] MEDS: CLOPIDOGREL BISULFATE 75 MG TABLET GT SCH (08:33)
[2018-06-03] MEDS: MULTIVIT, IRON, MIN NO. 8, FA 1 TAB GT SCH (08:34)
[2018-06-03] MEDS: BACLOFEN (10 MG) 10 MG TABLET GT SCH ×2 (08:34→16:31)
[2018-06-03] MEDS: DOCUSATE SODIUM LIQ 100 MG/10 ML UDC GT SCH ×2 (08:36→16:26)
[2018-06-03] MEDS: MUPIROCIN OINT 2% 22 GM TUBE SCH (08:36)
[2018-06-03] MEDS ORDERED: LEVO500T75 PEG (10:05)
[2018-06-03] MEDS ORDERED: LEVO125T PO (10:05)
[2018-06-03] MEDS: ACYCLOVIR 800 MG TABLET GT SCH ×3 (11:00→18:00)
[2018-06-03 16:00] VITALS: BP 98/60
[2018-06-03] MEDS: VANCOMYCIN 0.75 GM in IV D5W 250 ML IV SCH (16:23)
--- NOTE | 2018-06-03 18:52 | NUR ---
RN DISCHARGED NOTES PATIENT DISCHARGED TO [facility] IN STABLE CONDITION. OPEN HER EYES, NON -VERBAL WITH FLAT AFFECT. REPORT GIVEN TO CHARGE NURSE RAFI AND STATED THAT PT WILL GO TO SAME ROOM SHE HAD BEFORE. V/S TAKEN AND RECORDED. PHOTOS OF SKIN TAKEN AND FILED ON CHART. NO BELONGINGS WHEN ADMITTED, BELONGINGS LIST SIGNED BY XUAN. HEALT TEACHINGS GIVEN TO AND VERBALIZED UNDERSTANDING. PT LEFT UNIT AT 1850 VIA ViewRepleRNEY ON PORTABLE 02 VIA N/C @ 2LPM, NO ACUTE DISTRESS NOTED ACCOMPANIED BY 2 EMT'S AND . MD AND CHARGE NURSE AWARE OF DISCHARGE.
== END 2018-06-03 18:55 | DRG 393 ==
LOC: ER 21:48 → TELE 05-31 00:44 → MED 05-31 10:49
PROVIDERS: ADMIT Nurse Practitioner Acute Care; ATTEND Internal Medicine
DX: K94.23 Gastrostomy malfunction (principal); J15.6 Pneumonia due to other Gram-negative bacteria; N17.0 Acute kidney failure with tubular necrosis; E87.1 Hypo-osmolality and hyponatremia; G93.1 Anoxic brain damage, not elsewhere classified; I69.354 Hemiplegia and hemiparesis following cerebral infarction affecting left non-dominant side; Y83.3 Surgical operation with formation of external stoma as the cause of abnormal reaction of the patient, or of later complication, without mention of misadventure at the time of the procedure; Y92.129 Unspecified place in nursing home as the place of occurrence of the external cause; G40.909 Epilepsy, unspecified, not intractable, without status epilepticus; R13.10 Dysphagia, unspecified; Z79.84 Long term (current) use of oral hypoglycemic drugs; Z79.82 Long term (current) use of aspirin; Z88.0 Allergy status to penicillin; Z88.8 Allergy status to other drugs, medicaments and biological substances; E03.9 Hypothyroidism, unspecified; E78.5 Hyperlipidemia, unspecified; Z79.4 Long term (current) use of insulin; Z79.899 Other long term (current) drug therapy; Z86.19 Personal history of other infectious and parasitic diseases; I11.0 Hypertensive heart disease with heart failure; I50.9 Heart failure, unspecified; I25.10 Atherosclerotic heart disease of native coronary artery without angina pectoris; E11.9 Type 2 diabetes mellitus without complications; D63.8 Anemia in other chronic diseases classified elsewhere; E86.0 Dehydration
CPT/HCPCS: 31720; 36415; 70450-TC; 71045-TC; 74018; 80048-TC; 80061-TC; 80076-TC; 80202-TC; 80305; 81000-TC; 82570-TC; 82746; 82962-TC; 83605-TC; 83735-TC; 84100-TC; 84300-TC; 84443-TC; 84484-TC; 85025-TC; 87040-TC; 87070-TC; 87081-TC; A4216; A4217; A4606; A6402; J1815; J2185; J2405; J3370; J3475; J3490; J7030; J7040; J7050; J7060; Q9963; Z7610

== ENCOUNTER 2018-11-02 07:43 | Emergency (ER) | payer MEDICARE, OTHER ==
[~2018-11-02] VITALS: Ht 152.4 cm; Wt 90.7 kg
[~2018-11-02 07:43] MED LIST: ACET325C5 GT; ACYC800T GT; ASCO500T9 GT; ASPI-1169 GT; BACL5TAB GT; BENEFIBER GT; BISA10SU8 RC; CIPR5DRO LEFTEYE; CLOP75TA15 GT; COLL30OI TP; CYAN10009 GT; DOCU50LI GT; EZET1TAB26 GT; FENO145T GT; FERR300L GT; FOLI1TAB16 GT; GLIM2TAB GT; INSU100I4 SQ; INSU100V7 SQ; IPRA3AMP23 IH; L.AC460C GT; LANS30CA54 GT; LEVO125T PO; LEVO500T75 PEG; LINA5TAB GT; LISI-607 GT; MAGN400O21 GT; MULT9LIQ GT; MUPI1OIN NS; NITR0.4T48 SL; ONDA4TAB5 GT; SODI1POW44 GT
--- NOTE | 2018-11-02 07:55 | NUR ---
HELIO FROM ASSISTED FOUND G TUBE DISLODGED AND RUPTURED AT 0400 TODAY, NO DISTRESS , SITE WASS REPLACED WITH BERMAN CATHETER. TO ER BED 9, VSS, AWAITING MD SALAS
--- NOTE | 2018-11-02 08:00 | NUR ---
AT BEDSIDE, REPLACED G-TUBE
[2018-11-02] MEDS ORDERED: DIATR MEGLU/DIATRIZOATE SODIUM 30 ML BOTTLE (GASTROGRAPHIN) ONE (08:04)
--- NOTE | 2018-11-02 08:05 | NUR ---
CAR STOWER AT BEDSIDE FOR ABDOMEN KUB
--- NOTE | 2018-11-02 10:19 | NUR ---
Patient discharged TO [facility] UNIT 107 in stable condition. Written and verbal after care instructions given.
[2018-11-02 10:21] VITALS: BP 105/67
[2019-01-24] MEDS ORDERED: Hydrogel Dressing TP (07:31)
[2019-01-24] MEDS ORDERED: ACID1TAB12 GT (07:31)
[2019-01-24] MEDS ORDERED: OSEL75CA PO (07:32)
[2019-01-24] MEDS ORDERED: CEFT1VIA15 IV (07:32)
== END 2018-11-02 10:22 ==
LOC: ER 07:44
DX: K94.23 Gastrostomy malfunction (principal); I10 Essential (primary) hypertension; E03.9 Hypothyroidism, unspecified; E11.9 Type 2 diabetes mellitus without complications; E78.5 Hyperlipidemia, unspecified; G25.81 Restless legs syndrome; Z96.661 Presence of right artificial ankle joint; Z95.5 Presence of coronary angioplasty implant and graft; Z96.662 Presence of left artificial ankle joint; Z79.4 Long term (current) use of insulin; Z79.82 Long term (current) use of aspirin; Z88.0 Allergy status to penicillin; Z88.8 Allergy status to other drugs, medicaments and biological substances; Z86.73 Personal history of transient ischemic attack (TIA), and cerebral infarction without residual deficits
CPT/HCPCS: 43760; 74018; 99284; Q9963

== ENCOUNTER 2018-12-12 22:17 | Emergency (ER) | payer MEDICARE, OTHER ==
[~2018-12-12] VITALS: Ht 152.4 cm; Wt 49.4 kg
--- NOTE | 2018-12-12 23:05 | NUR ---
BIB [id number] FROM [facility] C/O ABSCESS AROUND G-TUBE X 3 WEEKS. PT IS NON VERBAL, EYES ABLE TO TRACK. SKIN WARM AND DRY TO TOUCH. NO S/S OF ACUE DISTRESS NOTED. RR EVEN AND UNLABORED. PT PLACED ON PARTS DRIVER AND POX. PT SAFETY AND COMFOT MEASURES IN PLACE. AWAITING MD FOR EVAL
[2018-12-12 23:06] VITALS: BP 131/60
[2018-12-12] MEDS ORDERED: LIDOCAINE 1% INJ 50 ML MDV IJ ONE (23:20)
--- NOTE | 2018-12-13 00:07 | NUR ---
PER MD PEREZ, 6CC OF PUSS WAS REMOVED VIA SYRINGE. XEROFORM APPLIED AND DRESSING SECURED PER MD. PT RESTING IN BED WITH NO DISTRESS NOTED
--- NOTE | 2018-12-13 00:28 | NUR ---
TRANSPORT ETA 90-120 MINS TRIP NUMBER [id number]
[2019-01-24] MEDS ORDERED: ACID1TAB12 GT (07:31)
[2019-01-24] MEDS ORDERED: Hydrogel Dressing TP (07:31)
[2019-01-24] MEDS ORDERED: OSEL75CA PO (07:32)
[2019-01-24] MEDS ORDERED: CEFT1VIA15 IV (07:32)
== END 2018-12-13 01:42 | disposition home or self-care (01) ==
LOC: ER 22:19
DX: L02.211 Cutaneous abscess of abdominal wall (principal); R13.10 Dysphagia, unspecified; G40.909 Epilepsy, unspecified, not intractable, without status epilepticus; E03.9 Hypothyroidism, unspecified; I10 Essential (primary) hypertension; E11.9 Type 2 diabetes mellitus without complications; G81.90 Hemiplegia, unspecified affecting unspecified side; E78.5 Hyperlipidemia, unspecified; Z88.0 Allergy status to penicillin; Z79.4 Long term (current) use of insulin; Z86.73 Personal history of transient ischemic attack (TIA), and cerebral infarction without residual deficits; Z93.1 Gastrostomy status; Z95.5 Presence of coronary angioplasty implant and graft; Z79.82 Long term (current) use of aspirin; Z88.8 Allergy status to other drugs, medicaments and biological substances
CPT/HCPCS: 10160; 99283; A4606; A6253; A6402; J3490

== ENCOUNTER 2019-01-18 17:05 | Inpatient (IN) | payer MEDICARE, OTHER ==
[~2019-01-18] VITALS: Ht 152.4 cm; Wt 50.8 kg
--- NOTE | 2019-01-18 17:16 | NUR ---
PT BIBPA FROM SNF FOR ELEVATED TMEP; PT AAOX4, PT ON MONITOR, VSS, NAD NOTED, PENDING ER PROVIDER DONNAAL
[2019-01-18] MEDS ORDERED: INSU100I26 SQ (18:48)
[2019-01-18] MEDS ORDERED: LEVO150T8 PO (18:48)
[2019-01-18] MEDS ORDERED: CYAN10009 GT (18:48)
[2019-01-18] MEDS ORDERED: IV NS 0.9% 1,000 ML BAG IV ONE (19:00)
[2019-01-18] MEDS ORDERED: ACETAMINOPHEN 650 MG/SUPP.RECT RC ONE ×2 (19:00→20:00)
--- NOTE | 2019-01-18 19:15 | NUR ---
UNABLE TO START PIV; MIDLINE STARTED BY SEBASTIAN MARTINEZ.
--- NOTE | 2019-01-18 19:15 | NUR ---
PT TO CT
[2019-01-18 19:24] LABS: BASOPHILS % (AUTO) 0.5 % (0.0-2.0); HEMATOCRIT 29 % (33-45); HEMOGLOBIN 9.7 g/dL (11.5-14.8); MEAN CORPUSCULAR HGB CONC 34 g/dl (31.0-36.0); MEAN CORPUSCULAR VOLUME 110 fL (82-100); MONOCYTES # (AUTO) 1.1 /CMM (0.1-1.30); MONOCYTES % (AUTO) 11.1 % (2.0-12.0); NEUTROPHILS # (AUTO) 7.6 /CMM (1.8-8.9); NEUTROPHILS % (AUTO) 78.4 % (43.0-81.0); PLATELET COUNT (AUTO) 174 /CMM (150-450); RED BLOOD CELL COUNT(AUTO) 2.64 MIL/uL (4.0-5.2); WHITE BLOOD COUNT (AUTO) 9.7 K/uL (4.3-11.0)
[2019-01-18 19:34] LABS: CALCIUM, SERUM 10.7 mg/dL (8.5-10.1); CARBON DIOXIDE 27 mmol/L (21-32); CHLORIDE 103 mmol/L (98-107); CREATININE 1.8 mg/dL (0.6-1.3); GLUCOSE 189 mg/dL (74-106); POTASSIUM 4.3 mmol/L (3.5-5.1); SODIUM SERUM 140 mmol/L (136-145); UREA NITROGEN, BLOOD 45 mg/dL (7-18)
[2019-01-18 19:51] LABS: ALANINE AMINOTRANSFERASE 64 U/L (12-78); ALBUMIN 3.6 g/dL (3.4-5.0); ALKALINE PHOSPHATASE 105 U/L (46-116); ASPARTATE AMINOTRANSFERASE 52 U/L (15-37); B-TYPE NATRIURETIC PEPTIDE 2454 PG/ML (0-125); BILIRUBIN,DIRECT 0.1 mg/dL (0.0-0.2); BILIRUBIN,TOTAL 0.5 mg/dL (0.2-1.0); TOTAL PROTEIN, SERUM 8.1 g/dL (6.4-8.2)
[2019-01-18] MEDS ORDERED: METRONIDAZOLE 500MG/ NS 100ML 100 ML IV ONE (19:59)
[2019-01-18] MEDS ORDERED: FLAGYL/NS RTU 500 MG/100 ML PIGGYBACK IV ONE (20:00)
[2019-01-18] MEDS ORDERED: LEVOFLOXACIN 500 MG /D5W 100ML 500 MG/100 ML PIGGYBACK IV ONE (20:00)
[2019-01-18] MEDS ORDERED: VANCOMYCIN 0.75 GM in IV D5W 250 ML IV ONE (20:00)
[2019-01-18] MEDS ORDERED: LEVOFLOXACIN 500 MG /D5W 100ML 100 ML IV ONE (20:00)
[2019-01-18] MEDS ORDERED: VANCOMYCIN 500 MG VIAL ONE (20:01)
[2019-01-18] MEDS ORDERED: ASPIRIN 300 MG/SUPP.RECT RC STA (22:09)
[2019-01-18] MEDS ORDERED: ASPIRIN 300 MG/SUPP.RECT RC ONE (22:50)
--- NOTE | 2019-01-18 23:08 | NUR ---
report given to glenda azul.
--- NOTE | 2019-01-18 23:16 | NUR ---
REAL TIME ANALYST NOTE PATIENT IS NON VERBAL BROUGHT BY ER VIA GURNEY, NO S/SX OF CARDIAC OR RESPIRATORY DISTRESS NOTED, ON TELE ST, GT CLAMPED, SINGH MIDLINE, PATENT AND FLUSHING WELL, AT BEDSIDE, PT SKIN KEPT DRY, HOB ELEVATED, ASPIRATION PRECAUTIONS OBSERVED, HEMIPLEGIC, BED ALARM ON, CALL LIGHT WITHIN REACH, BED IN LOW LOCKED POSITION, WILL CONTINUE TO MONITOR FOR ANY CHANGES.
--- NOTE | 2019-01-18 23:33 | NUR ---
PT TRANSFERRED TO 1ST FLOOR/BEV VIA ACLS PROTOCOL
[2019-01-19] VITALS: BP 96/44
[2019-01-19] MEDS ORDERED: Z GUARD REMEDY 2 OZ OINT TP PRN (00:30)
[2019-01-19] MEDS ORDERED: ACETAMINOPHEN 325 MG TABLET PO PRN (00:30)
[2019-01-19] MEDS ORDERED: HYDROCODONE/APAP 5/325MG 1 EACH TABLET PO PRN (00:30)
[2019-01-19] MEDS ORDERED: NITROGLYCERIN 0.4 MG/TAB BOTTLE SL PRN (00:30)
[2019-01-19] MEDS ORDERED: Medication Not On Formulary EA (Ipratropium/Albuterol Sulfate (Duoneb 2.5-0.5 Mg/3 Ml So IH PRN (00:30)
[2019-01-19] MEDS ORDERED: ONDANSETRON HCL/PF 4 MG/2 ML VIAL IVP PRN (00:30)
[2019-01-19] MEDS ORDERED: BISACODYL SUPP (10 MG) 10 MG/SUPP.RECT SUPP.RECT RC PRN (00:30)
[2019-01-19] MEDS ORDERED: MAGNESIUM HYDROXIDE 30 ML UDC GT PRN (00:30)
[2019-01-19] MEDS ORDERED: ZOLPIDEM TARTRATE 5 MG TABLET PO PRN (00:30)
[2019-01-19] MEDS ORDERED: DEXTROSE 50%-WATER 50 ML DISP.SYRIN IV PRN (00:30)
[2019-01-19] MEDS ORDERED: ALBUTEROL FS 2.5 MG/3 ML VIAL.NEB NEB PRN (02:30)
[2019-01-19] MEDS ORDERED: IPRATROPIUM NEB FS 0.5 MG/2.5 ML AMPUL.NEB NEB PRN (02:30)
[2019-01-19 04:00] VITALS: BP 98/35
[2019-01-19] MEDS: BLOOD SUGAR DIAGNOSTIC 1 EACH STRIP IN SCH ×4 (05:25→23:26)
[2019-01-19] MEDS: INSULIN REGULAR, HUMAN 100 UNIT/ML 3 ML VIAL SQ PRN ×2 (05:31→12:45)
[2019-01-19] MEDS ORDERED: LEVOTHYROXINE SODIUM 150 MCG TABLET PO SCH (07:30)
[2019-01-19] MEDS: GLIMEPIRIDE 4 MG TABLET GT SCH (07:56)
[2019-01-19] MEDS ORDERED: LEVOTHYROXINE SODIUM 75 MCG TABLET PO SCH (07:58)
[2019-01-19 08:00] VITALS: BP_SYST 109; BP_SYST 82; BP_DIAS 31; BP_DIAS 53
[2019-01-19] MEDS ORDERED: LEVOFLOXACIN 500 MG /D5W 100ML 500 MG in PREMIX 1 EA IV ONE (08:00)
[2019-01-19] MEDS: BENEFIBER 4 GM 1 EA PACKET GT SCH ×2 (08:14→16:08)
[2019-01-19] MEDS: FERROUS SULFATE UDC 300 MG/5 ML UDC GT SCH (08:14)
[2019-01-19] MEDS: DOCUSATE SODIUM LIQ 100 MG/10 ML UDC GT SCH ×2 (08:15→16:08)
[2019-01-19] MEDS: PANTOPRAZOLE 40 MG/PACK PACK GT SCH (08:15)
[2019-01-19] MEDS: ASPIRIN 81 MG TAB.CHEW GT SCH (08:16)
[2019-01-19] MEDS: ASCORBIC ACID 500 MG TABLET GT SCH (08:16)
[2019-01-19] MEDS: CLOPIDOGREL BISULFATE 75 MG TABLET GT SCH (08:16)
[2019-01-19] MEDS: CYANOCOBALAMIN 500 MCG TABLET GT SCH (08:16)
[2019-01-19] MEDS: FOLIC ACID 1 MG TABLET GT SCH (08:16)
[2019-01-19] MEDS: LINAGLIPTIN 5 MG TABLET GT SCH (08:16)
[2019-01-19] MEDS: HEPARIN SODIUM, PORCINE 5000 UNITS/1 ML VIAL SQ SCH ×2 (08:19→20:07)
--- NOTE | 2019-01-19 08:30 | NUR ---
RN NOTE EVALUATION SPECIALIST REPORTED PATIENT'S BLOOD PRESSURE WAS 82/31. GAVE PATIENT'S MORNING MEDS - NO BP MEDS, AND RECHECKED BP. BP WAS 109/53. WILL LET THE MD AWARE
--- NOTE | 2019-01-19 08:46 | NUR ---
RN NOTE CALLED PHARMACY REGARDING LEVAQUIN IV, WAS NOT ON PATIENT'S MEDICATION BOX. THEY SAID THEY WILL SEND IT
[2019-01-19] MEDS ORDERED: Medication Not On Formulary EA (Lansoprazole (Prevacid) 30 MG) GT SCH (09:00)
[2019-01-19] MEDS ORDERED: ACIDOPH GT SCH (09:00)
[2019-01-19] MEDS ORDERED: GLIMEPIRIDE 4 MG GT SCH (09:00)
[2019-01-19] MEDS ORDERED: B ANIMALIS GT SCH (09:00)
[2019-01-19] MEDS ORDERED: Medication Not On Formulary EA (Levothyroxine Sodium 150 MCG) PO SCH (09:00)
[2019-01-19] MEDS ORDERED: B LONGUM GT SCH (09:00)
[2019-01-19] MEDS ORDERED: [UNRECOGNIZED DRUG - OTHER] GT SCH (09:00)
--- NOTE | 2019-01-19 09:57 | NUR ---
RN OPENING NOTE RECEIVED PATIENT IN BED AWAKE, BUT NON VERBAL, JUST OPENS EYES. ON TELE MONITOR SR HR 93. HAS A GT CLAMPED, NO FEEDING RUNNING, PER NOC SHIFT THERE WAS NO ORDER AND SHE ORDERED DIETARY CONSULT. PATIENT ON DIAPER. HAS A RIGHT UPPER ARM MIDLINE, NO IVF RUNNING AT THIS TIME. NO SIGNS OF ANY PAIN OR ANY DISTRESS. BED LOCKED AND IN LOW POSITION. CALL LIGHT WITHIN REACH. WILL CONTINUE TO MONITOR
[2019-01-19] MEDS ORDERED: FEE PK DOSING 1 MIN EA MC ONE (10:03)
--- NOTE | 2019-01-19 10:11 | NUR ---
RN NOTE CALLED PHARMACY AGAIN REGARDING PATIENT'S LEVAQUIN, THEY SAID THEY WILL SEND IT CAIN.
[2019-01-19] MEDS: ACIDOPHILUS/BULGARICUS 1 EACH TAB.CHEW GT SCH (10:59)
[2019-01-19 11:52] LABS: BASOPHILS % (AUTO) 0.1 % (0.0-2.0); HEMATOCRIT 25 % (33-45); HEMOGLOBIN 8.6 g/dL (11.5-14.8); LYMPHOCYTES % (AUTO) 13.8 % (20.0-44.0); MEAN CORPUSCULAR HGB CONC 35 g/dl (31.0-36.0); MEAN CORPUSCULAR VOLUME 108 fL (82-100); MONOCYTES # (AUTO) 0.7 /CMM (0.1-1.30); MONOCYTES % (AUTO) 10.6 % (2.0-12.0); NEUTROPHILS # (AUTO) 5.2 /CMM (1.8-8.9); NEUTROPHILS % (AUTO) 75.5 % (43.0-81.0); PLATELET COUNT (AUTO) 140 /CMM (150-450); RED BLOOD CELL COUNT(AUTO) 2.28 MIL/uL (4.0-5.2); WHITE BLOOD COUNT (AUTO) 6.9 K/uL (4.3-11.0)
[2019-01-19 12:00] VITALS: BP_SYST 105; BP_SYST 87; BP_DIAS 48; BP_DIAS 53
[2019-01-19 12:01] LABS: ALANINE AMINOTRANSFERASE 54 U/L (12-78); ALKALINE PHOSPHATASE 86 U/L (46-116); ASPARTATE AMINOTRANSFERASE 42 U/L (15-37); BILIRUBIN,TOTAL 0.4 mg/dL (0.2-1.0); CALCIUM, SERUM 9.3 mg/dL (8.5-10.1); CARBON DIOXIDE 26 mmol/L (21-32); CHLORIDE 109 mmol/L (98-107); CREATININE 1.6 mg/dL (0.6-1.3); GLUCOSE 168 mg/dL (74-106); MAGNESIUM 1.8 mg/dL (1.8-2.4); POTASSIUM 3.8 mmol/L (3.5-5.1); SODIUM SERUM 145 mmol/L (136-145); UREA NITROGEN, BLOOD 38 mg/dL (7-18)
[2019-01-19 12:03] LABS: IRON, SERUM 31 ug/dl (50-175); TOTAL IRON BINDING CAPACITY 217 ug/dl (250-450)
[2019-01-19 12:33] LABS: FERRITIN 3487 ng/mL (8-388)
[2019-01-19] MEDS ORDERED: GLUCERNA 1.2 1,000 ML BOTTLE NG PRN (15:30)
[2019-01-19 16:00] VITALS: BP_SYST 104; BP_SYST 154; BP_DIAS 40; BP_DIAS 88
--- NOTE | 2019-01-19 16:56 | NUR ---
RN NOTE PATIENT HAS A BODY TEMPERATURE OF 100.8F AT THIS TIME. WILL ADMINISTER TYLENOL VIA GT. WILL MONITOR CLOSELY
[2019-01-19] MEDS: GLUCERNA 1.2 1,000 ML BOTTLE NG PRN (17:39)
[2019-01-19] MEDS ORDERED: ZOLPIDEM TARTRATE 5 MG TABLET GT PRN (18:30)
[2019-01-19] MEDS ORDERED: ACETAMINOPHEN 650 MG/20.3 ML UDC PO PRN (18:30)
--- NOTE | 2019-01-19 19:15 | NUR ---
ADZING AND BORING MACHINE HELPER NOTE PATIENT IS RESTING WITH HOB ELEVATED, NON VERBAL, AT BEDSIDE, NO S/SX OF CARDIAC OR RESPIRATORY DISTRESS NOTED, ON TELE SR, GT WITH GLUCERNA 1.2 AT 30 ML/HR NO RESIDUAL, SINGH MIDLINE, PATENT AND FLUSHING WELL, SKIN KEPT DRY, ASPIRATION PRECAUTIONS OBSERVED, SAFETY MAINTAINED AT ALL TIMES, CALL LIGHT WITHIN REACH, BED IN LOW LOCKED POSITION, WILL CONTINUE TO MONITOR FOR ANY CHANGES.
--- NOTE | 2019-01-19 19:24 | NUR ---
RN CLOSING NOTE PATIENT IN BED, AWAKE AND NON VERBAL. ON BEDSIDE. SIGNED THE POLST FOR FULL CODE STATUS. ALL MEDS WERE GIVEN, NO SIGNS OF ANY DISTRESS OR ANY PAIN DURING MY SHIFT. Addendum: 01/19/19 at 1929 by SHERRY TURNER RN ADDITIONAL NOTES PATIENT STARTING GT FEEDING GLUCERNA 1.2 AT 30 ML/HR. GOAL IS 50ML/HR. NO INSULIN COVERAGE FOR 1800 BLOOD SUGAR CHECK. ENDORSED TO [facility] SHIFT FOR CONTINUITY OF CARE.
[2019-01-19 20:00] VITALS: BP 101/39
[2019-01-19] MEDS: ACETAMINOPHEN 650 MG/20.3 ML UDC GT PRN (20:05)
[2019-01-19] MEDS ORDERED: VANCOMYCIN 500 MG in IV D5W 100 ML IV SCH (21:00)
[2019-01-19] MEDS: INSULIN GLARGINE, 100 UNIT/ML CARTRIDGE SQ SCH (21:37)
[2019-01-20] VITALS: BP 118/51
[2019-01-20 04:00] VITALS: BP 136/56
[2019-01-20] MEDS: BLOOD SUGAR DIAGNOSTIC 1 EACH STRIP IN SCH ×4 (05:39→23:04)
[2019-01-20] MEDS: INSULIN REGULAR, HUMAN 100 UNIT/ML 3 ML VIAL SQ PRN ×3 (05:44→23:06)
--- NOTE | 2019-01-20 07:00 | NUR ---
RN OPENING NOTE RECEIVED PATIENT IN BED AWAKE, BUT NON VERBAL, JUST OPENS EYES. ON TELE MONITOR SR. HAS A GT CLAMPED, FEEDING RUNNING ORDERED AT 30 ML/HR. GOAL AT 50 ML/HR. PATIENT ON DIAPER. HAS A RIGHT UPPER ARM MIDLINE, NO IVF RUNNING AT THIS TIME. NO SIGNS OF ANY PAIN OR ANY DISTRESS. BED LOCKED AND IN LOW POSITION. CALL LIGHT WITHIN REACH. WILL CONTINUE TO MONITOR
[2019-01-20 08:00] VITALS: BP 90/48
[2019-01-20 08:13] LABS: BASOPHILS % (AUTO) 0.4 % (0.0-2.0); EOSINOPHILS % (AUTO) 0.1 % (0.0-6.0); HEMATOCRIT 25 % (33-45); LYMPHOCYTES # (AUTO) 1.2 /CMM (0.8-4.8); LYMPHOCYTES % (AUTO) 25.4 % (20.0-44.0); MEAN CORPUSCULAR HGB CONC 35 g/dl (31.0-36.0); MEAN CORPUSCULAR VOLUME 108 fL (82-100); MONOCYTES # (AUTO) 0.6 /CMM (0.1-1.30); MONOCYTES % (AUTO) 12.7 % (2.0-12.0); NEUTROPHILS # (AUTO) 2.9 /CMM (1.8-8.9); NEUTROPHILS % (AUTO) 61.4 % (43.0-81.0); PLATELET COUNT (AUTO) 132 /CMM (150-450); RED BLOOD CELL COUNT(AUTO) 2.34 MIL/uL (4.0-5.2); WHITE BLOOD COUNT (AUTO) 4.7 K/uL (4.3-11.0)
[2019-01-20 08:20] LABS: CARBON DIOXIDE 25 mmol/L (21-32); CHLORIDE 115 mmol/L (98-107); CREATININE 1.5 mg/dL (0.6-1.3); GLUCOSE 170 mg/dL (74-106); MAGNESIUM 1.9 mg/dL (1.8-2.4); PHOSPHORUS 2.3 mg/dL (2.5-4.9); POTASSIUM 3.6 mmol/L (3.5-5.1); SODIUM SERUM 150 mmol/L (136-145); UREA NITROGEN, BLOOD 33 mg/dL (7-18)
[2019-01-20 08:26] LABS: CHOLESTEROL 126 mg/dL (<200); HDL CHOLESTEROL 27 mg/dL (40-60); LDL 48 mg/dL (0-99); THYROID STIMULATING HORMONE 0.457 uIU/mL (0.358-3.74); TRIGLYCERIDES 603 mg/dL (30-150)
[2019-01-20] MEDS: CLOPIDOGREL BISULFATE 75 MG TABLET GT SCH (08:41)
[2019-01-20] MEDS: CYANOCOBALAMIN 500 MCG TABLET GT SCH (08:41)
[2019-01-20] MEDS: DOCUSATE SODIUM LIQ 100 MG/10 ML UDC GT SCH ×2 (08:41→16:32)
[2019-01-20] MEDS: ASCORBIC ACID 500 MG TABLET GT SCH (08:41)
[2019-01-20] MEDS: BENEFIBER 4 GM 1 EA PACKET GT SCH ×2 (08:41→16:32)
[2019-01-20] MEDS: ASPIRIN 81 MG TAB.CHEW GT SCH (08:41)
[2019-01-20] MEDS: ACIDOPHILUS/BULGARICUS 1 EACH TAB.CHEW GT SCH (08:41)
[2019-01-20] MEDS: GLIMEPIRIDE 4 MG TABLET GT SCH (08:41)
[2019-01-20] MEDS: FERROUS SULFATE UDC 300 MG/5 ML UDC GT SCH (08:42)
[2019-01-20] MEDS: LINAGLIPTIN 5 MG TABLET GT SCH (08:42)
[2019-01-20] MEDS: FOLIC ACID 1 MG TABLET GT SCH (08:42)
[2019-01-20] MEDS: PANTOPRAZOLE 40 MG/PACK PACK GT SCH (08:42)
[2019-01-20] MEDS: LEVOTHYROXINE SODIUM 75 MCG TABLET GT SCH (08:42)
[2019-01-20] MEDS: HEPARIN SODIUM, PORCINE 5000 UNITS/1 ML VIAL SQ SCH ×2 (08:43→21:50)
[2019-01-20 10:18] LABS: BAND % (MANUAL) 2 % (0.0-5.0); LYMPHOCYTES % (MANUAL) 5 % (16-48); MONOCYTES % (MANUAL) 8 % (0-11.0); NEUTROPHILS % (MANUAL) 85 (42-76)
[2019-01-20 12:00] VITALS: BP 92/53
[2019-01-20] MEDS ORDERED: NEUTRA PHOS 1 POWD.PACKET NG ONE (13:30)
[2019-01-20 15:10] LABS: CREATININE, URINE 54.7 MG/DL (30.0-125.0); URINE TOTAL PROTEIN 80.1 mg/dL (0-11.9)
[2019-01-20 15:54] LABS: APPEARANCE,URINE SL CLOUDY (CLEAR); BILIRUBIN,URINE NEGATIVE (NEGATIVE); BLOOD, URINE NEGATIVE Ery/uL (NEGATIVE); COLOR,URINE YELLOW (YELLOW); KETONES,URINE NEGATIVE (NEGATIVE); LEUKOCYTE ESTERASE ,URINE NEGATIVE (NEGATIVE); NITRITE, URINE NEGATIVE (NEGATIVE); PROTEIN,URINE 1+ mg/dl (NEGATIVE); UGLUCOSE 2+ mg/dL (NEGATIVE); UROBILINOGEN,URINE 0.2 EU/dL (0.2)
[2019-01-20 16:00] VITALS: BP 102/59
[2019-01-20 16:07] LABS: BACTERIA,URINE None seen /HPF (None Seen); RBC,URINE 0-2 /HPF (0-2); SQUAMOUS EPITHELIAL CELL,UR Few /HPF (None Seen); WBC,URINE 0-2 /HPF (0-3)
[2019-01-20] MEDS: VANCOMYCIN 500 MG in IV D5W 100 ML IV SCH (16:28)
[2019-01-20] MEDS: OSELTAMIVIR PHOSPHATE 75 MG CAPSULE PO SCH (16:32)
[2019-01-20] MEDS: GLUCERNA 1.2 1,000 ML BOTTLE NG PRN (18:55)
--- NOTE | 2019-01-20 19:00 | NUR ---
MS RN CLOSING NOTES PT ENDORSED TO PM NURSE FOR LEONORA. PT RESTING IN BED, ALL TX RENDERED ORDERED. RESP CX TO BE FOLLOWED UP WITH PM NURSE. BED IN LOCKED/LOWEST POSITION. HOB ELEVATED TO 30 DEG. CALL LIGHT IN REACH.
[2019-01-20] MEDS: MEROPENEM 1 G in IV NS 0.9% 100 ML IV SCH (19:28)
--- NOTE | 2019-01-20 19:30 | NUR ---
MS RN NOTE: PATIENT RESTING IN BED, NO ACUTE DISTRESS NOTED. BREATHING EVEN AND UNLABORED, NO SOB NOTED. MIDLINE TO SINGH IN PLACE. G-TUBE IN PLACE, WITH NO RESIDUAL, INCREASED GLUCERNA UP TO 40ML/HR, TO RECEIVE GOAL OF 50ML/HR WITHOUT COMPLICATIONS. HOB ELEVATED. TO DO RAPID INFLUENZA SWAB AND COLLECT RESPIRATORY CULTURE. NO S/S HYPER/HYPOGLYCEMIA NOTED. ISOLATION PRECAUTIONS OBSERVED. BED LOCKED AND IN LOWEST POSITION, CALL LIGHT IN REACH. WILL CONTINUE TO MONITOR.
[2019-01-20 20:00] VITALS: BP 98/63
[2019-01-20] MEDS: INSULIN GLARGINE, 100 UNIT/ML CARTRIDGE SQ SCH (22:19)
--- NOTE | 2019-01-20 23:15 | NUR ---
MS RN NOTE: PATIENT BLOOD SUGAR LEVEL 177 MG/DL, PATIENT TO RECEIVE LANTUS 50 UNITS PER MD ORDER AND 3 UNITS PER SLIDING SCALE. PATIENT ON G-TUBE FEEDING, NO S/S OF HYPO/HYPERGLYCEMIA NOTED. WILL CONTINUE TO MONITOR.
--- NOTE | 2019-01-21 | NUR ---
MS RN NOTE: RESPIRATORY CULTURE AND INFLUENZA SWAB COLLECTED AND LAB INFORMED ON SPECIMEN FOR TAPE CUTTING MACHINE OPERATOR. SPECIMEN LEFT IN FRIDGE. WILL CONTINUE TO MONITOR.
[2019-01-21 04:00] VITALS: BP 95/59
[2019-01-21] MEDS: BLOOD SUGAR DIAGNOSTIC 1 EACH STRIP IN SCH ×4 (05:11→23:52)
[2019-01-21] MEDS: MEROPENEM 1 G in IV NS 0.9% 100 ML IV SCH ×2 (05:11→17:20)
[2019-01-21] MEDS: INSULIN REGULAR, HUMAN 100 UNIT/ML 3 ML VIAL SQ PRN ×3 (06:07→23:54)
--- NOTE | 2019-01-21 06:10 | NUR ---
MS RN NOTE: PATIENT RESTING IN BED, NO ACUTE DISTRESS NOTED. BREATHING EVEN AND UNLABORED, NO SOB NOTED. MIDLINE TO SINGH IN PLACE. G-TUBE IN PLACE, INFUSING GLUCERNA AT 50ML/HR, HOB ELEVATED. BLOOD SUGAR LEVEL 275MG/DL, TO RECEIVE 6 UNITS OF INSULIN PER SLIDING SCALE, NO S/S HYPER/HYPOGLYCEMIA NOTED. ISOLATION PRECAUTIONS OBSERVED. BED LOCKED AND IN LOWEST POSITION, CALL LIGHT IN REACH. WILL ENDORSE TO DAY NURSE TO CONTINUE WITH PLAN OF CARE.
[2019-01-21] MEDS: GLIMEPIRIDE 4 MG TABLET GT SCH (07:30)
[2019-01-21] MEDS: LEVOTHYROXINE SODIUM 75 MCG TABLET GT SCH (07:30)
[2019-01-21 08:00] VITALS: BP 100/62
[2019-01-21 08:23] LABS: BASOPHILS % (AUTO) 0.2 % (0.0-2.0); EOSINOPHILS % (AUTO) 0.1 % (0.0-6.0); HEMATOCRIT 25 % (33-45); HEMOGLOBIN 8.9 g/dL (11.5-14.8); LYMPHOCYTES # (AUTO) 1.6 /CMM (0.8-4.8); LYMPHOCYTES % (AUTO) 49.5 % (20.0-44.0); MEAN CORPUSCULAR HGB CONC 36 g/dl (31.0-36.0); MEAN CORPUSCULAR VOLUME 108 fL (82-100); MONOCYTES # (AUTO) 0.5 /CMM (0.1-1.30); NEUTROPHILS # (AUTO) 1.2 /CMM (1.8-8.9); NEUTROPHILS % (AUTO) 36.2 % (43.0-81.0); PLATELET COUNT (AUTO) 131 /CMM (150-450); RED BLOOD CELL COUNT(AUTO) 2.29 MIL/uL (4.0-5.2); WHITE BLOOD COUNT (AUTO) 3.3 K/uL (4.3-11.0)
[2019-01-21 08:28] LABS: ALBUMIN 2.9 g/dL (3.4-5.0); ALKALINE PHOSPHATASE 125 U/L (46-116); BILIRUBIN,TOTAL 0.3 mg/dL (0.2-1.0); CALCIUM, SERUM 8.7 mg/dL (8.5-10.1); CARBON DIOXIDE 24 mmol/L (21-32); CHLORIDE 113 mmol/L (98-107); CREATININE 1.4 mg/dL (0.6-1.3); GLUCOSE 292 mg/dL (74-106); MAGNESIUM 1.6 mg/dL (1.8-2.4); PHOSPHORUS 1.9 mg/dL (2.5-4.9); POTASSIUM 3.6 mmol/L (3.5-5.1); SODIUM SERUM 148 mmol/L (136-145); UREA NITROGEN, BLOOD 27 mg/dL (7-18)
--- NOTE | 2019-01-21 08:41 | NUR ---
WOUND CARE CONSULT WOUND CARE RECEIVED CONSULT FOR SACRAL/ABDOMINAL WOUNDS. WOUND CARE WILL DEFER CONSULT AND ALL TREATMENT PLANS TO PLASTIC SURGICAL TEAM WHO ARE CURRENTLY FOLLOWING THIS PATIENT. PATIENT WITH RASHIDA AT 10, ALL PRESSURE ULCER PREVENTION MEASURES ARE NOTED TO BE IN PLACE AT THIS TIME. WILL SEE PRN.
[2019-01-21] MEDS: CLOPIDOGREL BISULFATE 75 MG TABLET GT SCH (09:00)
[2019-01-21] MEDS: HEPARIN SODIUM, PORCINE 5000 UNITS/1 ML VIAL SQ SCH ×2 (09:00→22:07)
[2019-01-21] MEDS: ASPIRIN 81 MG TAB.CHEW GT SCH (09:00)
[2019-01-21] MEDS: FOLIC ACID 1 MG TABLET GT SCH (09:00)
[2019-01-21] MEDS: PANTOPRAZOLE 40 MG/PACK PACK GT SCH (09:00)
[2019-01-21] MEDS: DOCUSATE SODIUM LIQ 100 MG/10 ML UDC GT SCH ×2 (09:00→17:14)
[2019-01-21] MEDS: OSELTAMIVIR PHOSPHATE 75 MG CAPSULE PO SCH ×2 (09:00→17:14)
[2019-01-21] MEDS: CYANOCOBALAMIN 500 MCG TABLET GT SCH (09:00)
[2019-01-21] MEDS: FERROUS SULFATE UDC 300 MG/5 ML UDC GT SCH (09:00)
[2019-01-21] MEDS: ASCORBIC ACID 500 MG TABLET GT SCH (09:00)
[2019-01-21] MEDS: LINAGLIPTIN 5 MG TABLET GT SCH (09:00)
[2019-01-21] MEDS: ACIDOPHILUS/BULGARICUS 1 EACH TAB.CHEW GT SCH (09:00)
[2019-01-21] MEDS: BENEFIBER 4 GM 1 EA PACKET GT SCH ×2 (09:00→17:13)
[2019-01-21 09:31] LABS: BAND % (MANUAL) 4 % (0.0-5.0); EOSINOPHILS % (MANUAL) 1 % (0-4); LYMPHOCYTES % (MANUAL) 54 % (16-48); MONOCYTES % (MANUAL) 6 % (0-11.0); NEUTROPHILS % (MANUAL) 35 (42-76)
[2019-01-21] MEDS: LEVOFLOXACIN 250 MG /D5W 50 ML 250 MG in PREMIX 1 EA IV SCH (09:31)
[2019-01-21 09:42] LABS: ALANINE AMINOTRANSFERASE 57 U/L (12-78); ASPARTATE AMINOTRANSFERASE 57 U/L (15-37)
[2019-01-21 10:00] VITALS: BP 106/60
[2019-01-21] MEDS: VANCOMYCIN 500 MG in IV D5W 100 ML IV SCH ×2 (10:27→22:09)
[2019-01-21] MEDS: Magnesium 1GM/D5W 100ML PREMIX 100 ML IV SCH ×2 (10:30→11:30)
[2019-01-21] MEDS: HYDROCODONE/APAP 5/325MG 1 EACH TABLET GT PRN ×2 (12:19→16:16)
[2019-01-21] MEDS ORDERED: K PHOS NEUTRAL 250 MG TABLET PO ONE (13:30)
--- NOTE | 2019-01-21 19:57 | NUR ---
MS RN RECEIVE PT IN BED, NON VERBAL, RESPIRATIONS EVEN AND UNLABORED, NO SOB NOTED, NO DISTRESS, SAFETY MEASURES IN PLACE. WILL CONTINUE TO MONITOR. AT BEDSIDE.
[2019-01-21 20:00] VITALS: BP 124/61
[2019-01-21] MEDS: INSULIN GLARGINE, 100 UNIT/ML CARTRIDGE SQ SCH (23:39)
[2019-01-22] MEDS: GLUCERNA 1.2 1,000 ML BOTTLE NG PRN (02:13)
[2019-01-22 04:00] VITALS: BP 149/76
[2019-01-22] MEDS: MEROPENEM 1 G in IV NS 0.9% 100 ML IV SCH ×2 (05:38→16:34)
[2019-01-22] MEDS: BLOOD SUGAR DIAGNOSTIC 1 EACH STRIP IN SCH ×3 (05:44→18:00)
[2019-01-22] MEDS: INSULIN REGULAR, HUMAN 100 UNIT/ML 3 ML VIAL SQ PRN ×2 (05:46→12:56)
--- NOTE | 2019-01-22 06:24 | NUR ---
RN CLOSING NOTE ASLEEP AND EASILY AWAKEN. NOT IN DISTRESS, STABLE. NEEDS ATTENDED AND ANTICIPATED, KEPT CLEAN AND DRY AND COMFORT. RESPIRATIONS EVEN AND UNLABORED. NURSING CARE RENDERED, REPOSITIONED EVERY [address] ME[address] PL[address], BED IN LOW LOCKED POSITION, CALL LIGHT WITHIN EASY REACH. ENDORSE TO NEXT SHIFT CONTINUITY OF CARE.
[2019-01-22] MEDS: GLIMEPIRIDE 4 MG TABLET GT SCH (07:30)
[2019-01-22] MEDS: LEVOTHYROXINE SODIUM 75 MCG TABLET GT SCH (07:30)
[2019-01-22 08:00] VITALS: BP 102/63
[2019-01-22 08:13] LABS: BASOPHILS % (AUTO) 0.2 % (0.0-2.0); EOSINOPHILS % (AUTO) 0.1 % (0.0-6.0); HEMATOCRIT 25 % (33-45); HEMOGLOBIN 8.8 g/dL (11.5-14.8); LYMPHOCYTES # (AUTO) 1.6 /CMM (0.8-4.8); LYMPHOCYTES % (AUTO) 42.3 % (20.0-44.0); MEAN CORPUSCULAR HGB CONC 36 g/dl (31.0-36.0); MEAN CORPUSCULAR VOLUME 109 fL (82-100); MONOCYTES # (AUTO) 0.5 /CMM (0.1-1.30); MONOCYTES % (AUTO) 13.4 % (2.0-12.0); NEUTROPHILS # (AUTO) 1.6 /CMM (1.8-8.9); PLATELET COUNT (AUTO) 122 /CMM (150-450); RED BLOOD CELL COUNT(AUTO) 2.27 MIL/uL (4.0-5.2); WHITE BLOOD COUNT (AUTO) 3.7 K/uL (4.3-11.0)
[2019-01-22 08:26] LABS: ALKALINE PHOSPHATASE 130 U/L (46-116); BILIRUBIN,TOTAL 0.3 mg/dL (0.2-1.0); CALCIUM, SERUM 9.1 mg/dL (8.5-10.1); CARBON DIOXIDE 25 mmol/L (21-32); CHLORIDE 114 mmol/L (98-107); CREATININE 1.5 mg/dL (0.6-1.3); MAGNESIUM 2.2 mg/dL (1.8-2.4); PHOSPHORUS 2.3 mg/dL (2.5-4.9); POTASSIUM 4.1 mmol/L (3.5-5.1); SODIUM SERUM 149 mmol/L (136-145); TOTAL PROTEIN, SERUM 7.2 g/dL (6.4-8.2); UREA NITROGEN, BLOOD 32 mg/dL (7-18)
[2019-01-22 08:37] LABS: ALANINE AMINOTRANSFERASE 59 U/L (12-78); ASPARTATE AMINOTRANSFERASE 59 U/L (15-37)
[2019-01-22 08:51] LABS: GLUCOSE 355 mg/dL (74-106)
[2019-01-22] MEDS: HEPARIN SODIUM, PORCINE 5000 UNITS/1 ML VIAL SQ SCH ×2 (09:00→20:24)
[2019-01-22] MEDS: CLOPIDOGREL BISULFATE 75 MG TABLET GT SCH (09:28)
[2019-01-22] MEDS: ASPIRIN 81 MG TAB.CHEW GT SCH (09:28)
[2019-01-22] MEDS: ACIDOPHILUS/BULGARICUS 1 EACH TAB.CHEW GT SCH (09:28)
[2019-01-22] MEDS: LINAGLIPTIN 5 MG TABLET GT SCH (09:28)
[2019-01-22] MEDS: OSELTAMIVIR PHOSPHATE 75 MG CAPSULE PO SCH ×2 (09:28→17:00)
[2019-01-22] MEDS: CYANOCOBALAMIN 500 MCG TABLET GT SCH (09:28)
[2019-01-22] MEDS: ASCORBIC ACID 500 MG TABLET GT SCH (09:28)
[2019-01-22] MEDS: BENEFIBER 4 GM 1 EA PACKET GT SCH ×2 (09:28→17:00)
[2019-01-22] MEDS: FERROUS SULFATE UDC 300 MG/5 ML UDC GT SCH (09:28)
[2019-01-22] MEDS: PANTOPRAZOLE 40 MG/PACK PACK GT SCH (09:28)
[2019-01-22] MEDS: FOLIC ACID 1 MG TABLET GT SCH (09:28)
[2019-01-22] MEDS: DOCUSATE SODIUM LIQ 100 MG/10 ML UDC GT SCH ×2 (09:28→17:00)
[2019-01-22] MEDS: HYDROCODONE/APAP 5/325MG 1 EACH TABLET GT PRN (09:29)
[2019-01-22] MEDS: VANCOMYCIN 500 MG in IV D5W 100 ML IV SCH (13:24)
[2019-01-22] MEDS ORDERED: NEUTRA PHOS 1 POWD.PACKET GT ONE (14:00)
[2019-01-22 16:00] VITALS: BP 108/59
[2019-01-22 16:21] VITALS: BP 149/76
[2019-01-22 20:00] VITALS: BP 106/67
[2019-01-22] MEDS: INSULIN GLARGINE, 100 UNIT/ML CARTRIDGE SQ SCH (22:20)
[2019-01-23] MEDS: BLOOD SUGAR DIAGNOSTIC 1 EACH STRIP IN SCH ×5 (00:35→23:45)
[2019-01-23] MEDS: INSULIN REGULAR, HUMAN 100 UNIT/ML 3 ML VIAL SQ PRN ×5 (00:36→23:52)
[2019-01-23 04:00] VITALS: BP 121/67
[2019-01-23] MEDS: MEROPENEM 1 G in IV NS 0.9% 100 ML IV SCH ×2 (04:18→16:25)
--- NOTE | 2019-01-23 07:10 | NUR ---
RN OPENING NOTE RECEIVED PATIENT IN BED, AWAKE OPENING EYES, NON VERBAL. NOTE AT THE DOOR TO NOT GIVE NORCO PER FAMILY REQUEST. ON DROPLET ISOLATION DUE TO INFLUENZA. ON 2L O2 NC SATING GOOD AT 97%. HAS AN ORDER OF FREE WATER FLUSH OF 200ML EVERY 6 HOURS DUE TO HYPENATREMIA YESTERDAY. BED ON LOW POSITION AND WILL CONTINUE TO MONITOR CLOSELY
[2019-01-23] MEDS: LEVOFLOXACIN 250 MG /D5W 50 ML 250 MG in PREMIX 1 EA IV SCH (07:51)
[2019-01-23] MEDS: LEVOTHYROXINE SODIUM 75 MCG TABLET GT SCH (07:51)
[2019-01-23] MEDS: GLIMEPIRIDE 4 MG TABLET GT SCH (07:51)
[2019-01-23 07:58] LABS: BASOPHILS % (AUTO) 0.2 % (0.0-2.0); EOSINOPHILS % (AUTO) 0.2 % (0.0-6.0); HEMATOCRIT 30 % (33-45); HEMOGLOBIN 10.5 g/dL (11.5-14.8); LYMPHOCYTES # (AUTO) 1.8 /CMM (0.8-4.8); LYMPHOCYTES % (AUTO) 40.6 % (20.0-44.0); MEAN CORPUSCULAR HGB CONC 35 g/dl (31.0-36.0); MEAN CORPUSCULAR VOLUME 109 fL (82-100); MONOCYTES # (AUTO) 0.8 /CMM (0.1-1.30); MONOCYTES % (AUTO) 18.8 % (2.0-12.0); NEUTROPHILS # (AUTO) 1.8 /CMM (1.8-8.9); NEUTROPHILS % (AUTO) 40.2 % (43.0-81.0); PLATELET COUNT (AUTO) 126 /CMM (150-450); RED BLOOD CELL COUNT(AUTO) 2.71 MIL/uL (4.0-5.2); WHITE BLOOD COUNT (AUTO) 4.5 K/uL (4.3-11.0)
[2019-01-23 08:00] VITALS: BP 116/67
[2019-01-23 08:15] LABS: ALBUMIN 3.3 g/dL (3.4-5.0); ALKALINE PHOSPHATASE 134 U/L (46-116); BILIRUBIN,TOTAL 0.3 mg/dL (0.2-1.0); CALCIUM, SERUM 9.4 mg/dL (8.5-10.1); CARBON DIOXIDE 28 mmol/L (21-32); CHLORIDE 119 mmol/L (98-107); CREATININE 1.3 mg/dL (0.6-1.3); GLUCOSE 208 mg/dL (74-106); MAGNESIUM 1.8 mg/dL (1.8-2.4); PHOSPHORUS 1.8 mg/dL (2.5-4.9); POTASSIUM 3.9 mmol/L (3.5-5.1); TOTAL PROTEIN, SERUM 7.9 g/dL (6.4-8.2); UREA NITROGEN, BLOOD 31 mg/dL (7-18)
[2019-01-23 08:36] LABS: SODIUM SERUM 156 mmol/L (136-145)
[2019-01-23] MEDS: LINAGLIPTIN 5 MG TABLET GT SCH (08:47)
[2019-01-23] MEDS: DOCUSATE SODIUM LIQ 100 MG/10 ML UDC GT SCH ×2 (08:47→16:25)
[2019-01-23] MEDS: ASCORBIC ACID 500 MG TABLET GT SCH (08:47)
[2019-01-23] MEDS: ACIDOPHILUS/BULGARICUS 1 EACH TAB.CHEW GT SCH (08:47)
[2019-01-23] MEDS: PANTOPRAZOLE 40 MG/PACK PACK GT SCH (08:47)
[2019-01-23] MEDS: CLOPIDOGREL BISULFATE 75 MG TABLET GT SCH (08:47)
[2019-01-23] MEDS: OSELTAMIVIR PHOSPHATE 75 MG CAPSULE PO SCH ×2 (08:47→16:25)
[2019-01-23] MEDS: ASPIRIN 81 MG TAB.CHEW GT SCH (08:47)
[2019-01-23] MEDS: FOLIC ACID 1 MG TABLET GT SCH (08:47)
[2019-01-23] MEDS: BENEFIBER 4 GM 1 EA PACKET GT SCH ×2 (08:47→16:25)
[2019-01-23] MEDS: CYANOCOBALAMIN 500 MCG TABLET GT SCH (08:47)
[2019-01-23] MEDS: FERROUS SULFATE UDC 300 MG/5 ML UDC GT SCH (08:47)
[2019-01-23 08:56] LABS: ALANINE AMINOTRANSFERASE 75 U/L (12-78); ASPARTATE AMINOTRANSFERASE 80 U/L (15-37)
[2019-01-23] MEDS: HEPARIN SODIUM, PORCINE 5000 UNITS/1 ML VIAL SQ SCH ×2 (09:01→21:04)
[2019-01-23] MEDS ORDERED: NEUTRA PHOS 1 POWD.PACKET NG ONE (13:30)
[2019-01-23] MEDS: GLUCERNA 1.2 1,000 ML BOTTLE NG PRN (15:41)
[2019-01-23 16:00] VITALS: BP 96/60
[2019-01-23] MEDS: HYDROGEL DRESSING 90 GM TUBE TP SCH (16:26)
--- NOTE | 2019-01-23 17:30 | NUR ---
RN NOTE PATIENT AWAKE, WITH ON BEDSIDE. PATIENT RECEIVED FREE WATER FLUSH 400ML TOTAL ON MY SHIFT. PHOSPHORUS WAS REPLACED WITH KPHOS. NO SIGNS OF ANY PAIN OR ANY DISTRESS AT THIS TIME.
--- NOTE | 2019-01-23 18:50 | NUR ---
RN CLOSING NOTE PATIENT IN BED AWAKE WITH EYES OPENING. ON BEDSIDE. ALL MEDS ARE GIVEN. NO APPARENT DISTRESS OR ANY PAIN NOTED. ALL NEEDS ARE MET. ONE BM FOR DAY SHIFT. WOUND CARE DONE. ON GT FEEDING 50ML/HR GLUCERNA. NO RESIDUAL FOR MY SHIFT. TURNED AND REPOSITIONED EVERY 2 HOURS. BED ON LOW POSITION. WILL ENDORSE TO NOC SHIFT NURSE.
[2019-01-23] MEDS: CEFTRIAXONE 1 G in IV D5W 50 ML IV SCH (19:02)
[2019-01-23 20:00] VITALS: BP 95/68
[2019-01-23] MEDS: INSULIN GLARGINE, 100 UNIT/ML CARTRIDGE SQ SCH (23:51)
[2019-01-24 04:00] VITALS: BP 94/61
[2019-01-24] MEDS: BLOOD SUGAR DIAGNOSTIC 1 EACH STRIP IN SCH ×3 (05:29→17:49)
[2019-01-24] MEDS: ACETAMINOPHEN 650 MG/20.3 ML UDC GT PRN ×2 (05:29→11:29)
[2019-01-24] MEDS: INSULIN REGULAR, HUMAN 100 UNIT/ML 3 ML VIAL SQ PRN ×3 (05:39→18:02)
--- NOTE | 2019-01-24 07:25 | NUR ---
RN OPENING NOTE RECEIVED PATIENT IN BED, AWAKE OPENING EYES, NON VERBAL. NOTE AT THE DOOR TO NOT GIVE NORCO PER FAMILY REQUEST. ON DROPLET ISOLATION DUE TO INFLUENZA. ON 2L O2 NC SATING GOOD ABOVE 90%. HAS AN ORDER OF FREE WATER FLUSH OF 200ML EVERY 6 HOURS DUE TO HYPENATREMIA YESTERDAY, NA 156. HAS A DISCHARGE ORDER FOR TODAY, WILL COMMUNICATE TO DEPARTMENT CHAIR FOR SNF PLACEMENT. BED ON LOW POSITION AND WILL CONTINUE TO MONITOR CLOSELY
[2019-01-24 07:30] LABS: BASOPHILS % (AUTO) 0.3 % (0.0-2.0); EOSINOPHILS % (AUTO) 0.2 % (0.0-6.0); HEMATOCRIT 25 % (33-45); HEMOGLOBIN 8.7 g/dL (11.5-14.8); LYMPHOCYTES # (AUTO) 1.8 /CMM (0.8-4.8); LYMPHOCYTES % (AUTO) 35.7 % (20.0-44.0); MEAN CORPUSCULAR HGB CONC 35 g/dl (31.0-36.0); MEAN CORPUSCULAR VOLUME 110 fL (82-100); MONOCYTES # (AUTO) 0.7 /CMM (0.1-1.30); MONOCYTES % (AUTO) 13.4 % (2.0-12.0); NEUTROPHILS # (AUTO) 2.5 /CMM (1.8-8.9); NEUTROPHILS % (AUTO) 50.4 % (43.0-81.0); PLATELET COUNT (AUTO) 137 /CMM (150-450); RED BLOOD CELL COUNT(AUTO) 2.25 MIL/uL (4.0-5.2)
[2019-01-24] MEDS ORDERED: Hydrogel Dressing TP (07:31)
[2019-01-24] MEDS ORDERED: ACID1TAB12 GT (07:31)
[2019-01-24] MEDS ORDERED: OSEL75CA PO (07:32)
[2019-01-24] MEDS ORDERED: CEFT1VIA15 IV (07:32)
[2019-01-24 07:47] LABS: ALBUMIN 2.8 g/dL (3.4-5.0); ALKALINE PHOSPHATASE 117 U/L (46-116); BILIRUBIN,TOTAL 0.3 mg/dL (0.2-1.0); CALCIUM, SERUM 8.7 mg/dL (8.5-10.1); CARBON DIOXIDE 26 mmol/L (21-32); CHLORIDE 119 mmol/L (98-107); CREATININE 1.4 mg/dL (0.6-1.3); GLUCOSE 274 mg/dL (74-106); MAGNESIUM 1.8 mg/dL (1.8-2.4); PHOSPHORUS 2.3 mg/dL (2.5-4.9); POTASSIUM 3.7 mmol/L (3.5-5.1); SODIUM SERUM 155 mmol/L (136-145); TOTAL PROTEIN, SERUM 6.8 g/dL (6.4-8.2); UREA NITROGEN, BLOOD 35 mg/dL (7-18)
[2019-01-24 08:00] VITALS: BP 120/66
[2019-01-24] MEDS: BENEFIBER 4 GM 1 EA PACKET GT SCH ×2 (08:18→16:41)
[2019-01-24] MEDS: DOCUSATE SODIUM LIQ 100 MG/10 ML UDC GT SCH ×2 (08:18→16:41)
[2019-01-24] MEDS: FERROUS SULFATE UDC 300 MG/5 ML UDC GT SCH (08:18)
[2019-01-24] MEDS: FOLIC ACID 1 MG TABLET GT SCH (08:19)
[2019-01-24] MEDS: ACIDOPHILUS/BULGARICUS 1 EACH TAB.CHEW GT SCH (08:19)
[2019-01-24] MEDS: LINAGLIPTIN 5 MG TABLET GT SCH (08:19)
[2019-01-24] MEDS: CLOPIDOGREL BISULFATE 75 MG TABLET GT SCH (08:19)
[2019-01-24] MEDS: CYANOCOBALAMIN 500 MCG TABLET GT SCH (08:19)
[2019-01-24] MEDS: GLIMEPIRIDE 4 MG TABLET GT SCH (08:19)
[2019-01-24] MEDS: ASPIRIN 81 MG TAB.CHEW GT SCH (08:20)
[2019-01-24] MEDS: LEVOTHYROXINE SODIUM 75 MCG TABLET GT SCH (08:20)
[2019-01-24] MEDS: ASCORBIC ACID 500 MG TABLET GT SCH (08:20)
[2019-01-24] MEDS: PANTOPRAZOLE 40 MG/PACK PACK GT SCH (08:20)
[2019-01-24 08:22] LABS: ASPARTATE AMINOTRANSFERASE 57 U/L (15-37)
[2019-01-24] MEDS: OSELTAMIVIR PHOSPHATE 75 MG CAPSULE PO SCH ×2 (08:22→16:41)
[2019-01-24 08:23] LABS: ALANINE AMINOTRANSFERASE 72 U/L (12-78)
[2019-01-24] MEDS: HEPARIN SODIUM, PORCINE 5000 UNITS/1 ML VIAL SQ SCH ×2 (08:41→20:52)
[2019-01-24] MEDS: HYDROGEL DRESSING 90 GM TUBE TP SCH (08:58)
--- NOTE | 2019-01-24 11:20 | NUR ---
RN NOTE RECHECKED PATIENT'S TEMPERATURE, IT WAS 99.2F. NOC SHIFT ADMINISTERED TYLENOL FOR LOW GRADE FEVER AT 0530. WILL ADMINISTER TYLENOL AT 1130, Q6H. ALSO, WILL DO COLD BED BATH
[2019-01-24 15:38] VITALS: BP 93/54
[2019-01-24 16:00] VITALS: BP 93/54
[2019-01-24] MEDS: CEFTRIAXONE 1 G in IV D5W 50 ML IV SCH (17:43)
[2019-01-24] MEDS: GLUCERNA 1.2 1,000 ML BOTTLE NG PRN (17:49)
--- NOTE | 2019-01-24 18:58 | NUR ---
RN CLOSING NOTE PATIENT IN BED NON VERBAL WITH EYES OPEN. FAMILY MEMBER ON BEDSIDE. ALL MEDS ARE GIVEN. PATIENT HAD A LOW GRADE FEVER THIS MORNING. WAS GIVEN TYLENOL AND COLD MEASURES. PATIENT HAS A RIGHT UPPER ARM MIDLINE, TKO. HAS AN ORDER FOR WATER FLUSH 200ML EVERY 4 HOURS. GT FEEDING RUNNING AT 50ML/HR. BM TWICE TODAY. NO APPARENT STRESS OR ANY PAIN. TURNED AND REPOSITIONED EVERY 2 HOURS. BED ON LOW POSITION. WILL ENDORSE TO NOC SHIFT RN.
[2019-01-24 20:00] VITALS: BP 146/61
[2019-01-24] MEDS: INSULIN GLARGINE, 100 UNIT/ML CARTRIDGE SQ SCH (22:43)
[2019-01-25] MEDS: BLOOD SUGAR DIAGNOSTIC 1 EACH STRIP IN SCH ×4 (00:37→17:28)
[2019-01-25] MEDS: INSULIN REGULAR, HUMAN 100 UNIT/ML 3 ML VIAL SQ PRN ×2 (00:43→06:14)
[2019-01-25 04:00] VITALS: BP 130/68
[2019-01-25 06:48] LABS: BASOPHILS % (AUTO) 0.2 % (0.0-2.0); EOSINOPHILS % (AUTO) 0.8 % (0.0-6.0); HEMATOCRIT 24 % (33-45); HEMOGLOBIN 8.5 g/dL (11.5-14.8); LYMPHOCYTES # (AUTO) 2.1 /CMM (0.8-4.8); LYMPHOCYTES % (AUTO) 31.3 % (20.0-44.0); MEAN CORPUSCULAR HGB CONC 36 g/dl (31.0-36.0); MEAN CORPUSCULAR VOLUME 110 fL (82-100); MONOCYTES # (AUTO) 0.7 /CMM (0.1-1.30); NEUTROPHILS # (AUTO) 3.7 /CMM (1.8-8.9); NEUTROPHILS % (AUTO) 56.7 % (43.0-81.0); PLATELET COUNT (AUTO) 153 /CMM (150-450); RED BLOOD CELL COUNT(AUTO) 2.15 MIL/uL (4.0-5.2); WHITE BLOOD COUNT (AUTO) 6.6 K/uL (4.3-11.0)
[2019-01-25 06:58] LABS: ALBUMIN 2.7 g/dL (3.4-5.0); ALKALINE PHOSPHATASE 109 U/L (46-116); BILIRUBIN,TOTAL 0.3 mg/dL (0.2-1.0); CALCIUM, SERUM 8.3 mg/dL (8.5-10.1); CARBON DIOXIDE 25 mmol/L (21-32); CHLORIDE 116 mmol/L (98-107); CREATININE 1.2 mg/dL (0.6-1.3); GLUCOSE 187 mg/dL (74-106); MAGNESIUM 1.9 mg/dL (1.8-2.4); PHOSPHORUS 2.3 mg/dL (2.5-4.9); POTASSIUM 3.8 mmol/L (3.5-5.1); SODIUM SERUM 151 mmol/L (136-145); TOTAL PROTEIN, SERUM 6.6 g/dL (6.4-8.2); UREA NITROGEN, BLOOD 36 mg/dL (7-18)
[2019-01-25 07:26] LABS: ALANINE AMINOTRANSFERASE 60 U/L (12-78); ASPARTATE AMINOTRANSFERASE 40 U/L (15-37)
--- NOTE | 2019-01-25 07:30 | NUR ---
RN NOTES RECEIVED PATIENT IN BED, AWAKE, WITH SPONTANEOUS EYE OPENING, ABLE TO TRACK, NON VERBAL, NOT ON ANY FORM OF DISTRESS, ON O2 SUPPORT VIA NASAL CANNULA AT 2 LPM, SATING FINE. NO SOB NOTED. SKIN WARM AND DRY. PULSES PALPABLE, IV ACCESS NOTED ON THE SINGH MIDLINE: SALINE LOCK, INTACT AND IN PLACE, PATENT ON FLUSHING, DRESSING CDI. PATIENT WITH GTF OF GLUCERNA 1.2 AT 50 CC, GT PLACEMENT CONFIRMED BY AUSCULTATING AND ASPIRATING GASTRIC RESIDUAL, PATIENT ABLE TO TOLERATE FEEDING AT THIS TIME. HOB KEPT ELEVATED. SAFETY MEASURES OBSERVED AND MAINTAINED, ISOLATION PRECAUTION IMPLEMENTED. CALL LIGHT PLACED WITHIN REACH, WILL CONTINUE TO MONITOR PATIENT CLOSELY
[2019-01-25 08:00] VITALS: BP_SYST 105; BP_DIAS 75; BP_DIAS 76
[2019-01-25 08:48] LABS: BAND % (MANUAL) 1 % (0.0-5.0); EOSINOPHILS % (MANUAL) 1 % (0-4); LYMPHOCYTES % (MANUAL) 32 % (16-48); MONOCYTES % (MANUAL) 8 % (0-11.0); NEUTROPHILS % (MANUAL) 58 (42-76)
[2019-01-25] MEDS: BENEFIBER 4 GM 1 EA PACKET GT SCH ×2 (09:06→17:28)
[2019-01-25] MEDS: FERROUS SULFATE UDC 300 MG/5 ML UDC GT SCH (09:06)
[2019-01-25] MEDS: ACIDOPHILUS/BULGARICUS 1 EACH TAB.CHEW GT SCH (09:06)
[2019-01-25] MEDS: CYANOCOBALAMIN 500 MCG TABLET GT SCH (09:07)
[2019-01-25] MEDS: ASPIRIN 81 MG TAB.CHEW GT SCH (09:07)
[2019-01-25] MEDS: LEVOTHYROXINE SODIUM 75 MCG TABLET GT SCH (09:07)
[2019-01-25] MEDS: PANTOPRAZOLE 40 MG/PACK PACK GT SCH (09:07)
[2019-01-25] MEDS: ASCORBIC ACID 500 MG TABLET GT SCH (09:07)
[2019-01-25] MEDS: FOLIC ACID 1 MG TABLET GT SCH (09:07)
[2019-01-25] MEDS: LINAGLIPTIN 5 MG TABLET GT SCH (09:07)
[2019-01-25] MEDS: GLIMEPIRIDE 4 MG TABLET GT SCH (09:07)
[2019-01-25] MEDS: CLOPIDOGREL BISULFATE 75 MG TABLET GT SCH (09:07)
[2019-01-25] MEDS: DOCUSATE SODIUM LIQ 100 MG/10 ML UDC GT SCH ×2 (09:08→17:28)
[2019-01-25] MEDS: OSELTAMIVIR PHOSPHATE 75 MG CAPSULE PO SCH (09:08)
[2019-01-25] MEDS: HEPARIN SODIUM, PORCINE 5000 UNITS/1 ML VIAL SQ SCH ×2 (09:09→20:35)
[2019-01-25] MEDS: HYDROGEL DRESSING 90 GM TUBE TP SCH (09:17)
[2019-01-25] MEDS ORDERED: NEUTRA PHOS 1 POWD.PACKET PO ONE (09:30)
--- NOTE | 2019-01-25 10:00 | NUR ---
RN NOTES BLISTER NOTED ON THE RIGHT FEET OF THE PATIENT DURING CLEANING. SITE MADE CLEAN AND DRY. COVERED WITH MEPILEX FOR PROTECTION AND OFFLOADED WITH PILLOWS. MD MADE AWARE. WILL MONITOR FOR ANY CHANGES
[2019-01-25 16:00] VITALS: BP 118/63
[2019-01-25] MEDS: CEFTRIAXONE 1 G in IV D5W 50 ML IV SCH (17:28)
--- NOTE | 2019-01-25 19:18 | NUR ---
RN NOTES ENDORSED PATIENT FOR CONTINUITY OF CARE. NO ACUTE CHANGES WITHIN THE SHIFT. PATIENT NOT ON ANY FORM OF DISTRESS. ALL NURSING NEED ATTENDED AND MET. KEPT SAFETY MEASURES, ASPIRATION PRECAUTIONS AND ISOLATION PRECAUTIONS IN PLACE AT ALL TIMES. CALL LIGHT WITHIN REACH
[2019-01-25 20:00] VITALS: BP 129/57
--- NOTE | 2019-01-25 20:55 | NUR ---
RN NOTES, NOTED PATIENT WITH EPISODE OF HYPOGLYCEMIA WITH BLOOD SUGAR LEVEL 41MG/dL AT THIS TIME, DEXTROSE ADMINISTERED PROTOCOL, PATIENT A/O, RESPONSIVE, ASYMPTOMATIC, WILL CONTINUE TO MONITOR CLOSELY.
[2019-01-25] MEDS: INSULIN GLARGINE, 100 UNIT/ML CARTRIDGE SQ SCH (21:50)
--- NOTE | 2019-01-25 22:00 | NUR ---
RN NOTES, AFTER RECHECK OF BLOOD SUGAR, NOTED BLOOD SUGAR LEVEL 177MG/dL, PATIENT ASLEEP BUT EASY TO AROUSE, NO S/S OF HYPO/HYPERGLYCEMIA, WILL CONTINUE TO MONITOR CLOSELY.
[2019-01-26] MEDS: BLOOD SUGAR DIAGNOSTIC 1 EACH STRIP IN SCH ×5 (00:14→23:33)
[2019-01-26] MEDS: INSULIN REGULAR, HUMAN 100 UNIT/ML 3 ML VIAL SQ PRN ×4 (00:38→23:36)
[2019-01-26] MEDS: GLUCERNA 1.2 1,000 ML BOTTLE NG PRN (00:40)
[2019-01-26 04:00] VITALS: BP 125/55
[2019-01-26 06:23] VITALS: BP 125/55
--- NOTE | 2019-01-26 06:49 | NUR ---
RN NOTES, PATIENT IN BED, NO DISTRESS NOTED, BREATHING EVEN AND UNLABORED, WITH EPISODE OF HYPOGLYCEMIA LAST NIGHT AND DEXTROSE ADMINISTERED ORDERED, AFTER THAT PATIENT REMAINED STABLE, WITH NO SIGNIFICANT CHANGE IN CONDITION, WILL ENDORSE CONTINUITY OF CARE TO ONCOMING NURSE.
[2019-01-26 07:00] LABS: BASOPHILS % (AUTO) 0.3 % (0.0-2.0); EOSINOPHILS % (AUTO) 1.5 % (0.0-6.0); HEMATOCRIT 25 % (33-45); HEMOGLOBIN 8.5 g/dL (11.5-14.8); LYMPHOCYTES # (AUTO) 1.9 /CMM (0.8-4.8); LYMPHOCYTES % (AUTO) 28.7 % (20.0-44.0); MEAN CORPUSCULAR HGB CONC 34 g/dl (31.0-36.0); MEAN CORPUSCULAR VOLUME 111 fL (82-100); MONOCYTES # (AUTO) 0.9 /CMM (0.1-1.30); MONOCYTES % (AUTO) 12.7 % (2.0-12.0); NEUTROPHILS # (AUTO) 3.8 /CMM (1.8-8.9); NEUTROPHILS % (AUTO) 56.8 % (43.0-81.0); PLATELET COUNT (AUTO) 154 /CMM (150-450); RED BLOOD CELL COUNT(AUTO) 2.28 MIL/uL (4.0-5.2); WHITE BLOOD COUNT (AUTO) 6.8 K/uL (4.3-11.0)
--- NOTE | 2019-01-26 07:15 | NUR ---
RN OPENING NOTE RECEIVED PATIENT IN BED, AWAKE OPENING EYES, NON VERBAL. NOTE AT THE DOOR TO NOT GIVE NORCO PER FAMILY REQUEST. NORCO WAS ALREADY DC'D BY THE MD. ON DROPLET ISOLATION DUE TO INFLUENZA. ON 2L O2 NC SATING GOOD ABOVE 90%. HAS AN ORDER OF FREE WATER FLUSH OF 200ML EVERY 4 HOURS DUE TO HYPERNATREMIA, NA 151 YESTERDAY. HAS A RIGHT UPPER ARM MIDLINE SALINE LOCKED. NO SIGNS OF PAIN OR ANY DISTRESS AT THIS TIME. GT FEEDING GLUCERNA RUNNING AT 50ML/HR. LABS PENDING. BED ON LOW POSITION AND WILL CONTINUE TO MONITOR CLOSELY
[2019-01-26 08:00] VITALS: BP 143/52
[2019-01-26 08:13] LABS: BAND % (MANUAL) 3 % (0.0-5.0); LYMPHOCYTES % (MANUAL) 31 % (16-48); MONOCYTES % (MANUAL) 10 % (0-11.0); NEUTROPHILS % (MANUAL) 56 (42-76)
[2019-01-26] MEDS: CYANOCOBALAMIN 500 MCG TABLET GT SCH (08:13)
[2019-01-26] MEDS: GLIMEPIRIDE 4 MG TABLET GT SCH (08:13)
[2019-01-26] MEDS: ASPIRIN 81 MG TAB.CHEW GT SCH (08:13)
[2019-01-26] MEDS: FERROUS SULFATE UDC 300 MG/5 ML UDC GT SCH (08:13)
[2019-01-26] MEDS: LEVOTHYROXINE SODIUM 75 MCG TABLET GT SCH (08:13)
[2019-01-26] MEDS: CLOPIDOGREL BISULFATE 75 MG TABLET GT SCH (08:13)
[2019-01-26] MEDS: ACIDOPHILUS/BULGARICUS 1 EACH TAB.CHEW GT SCH (08:13)
[2019-01-26] MEDS: DOCUSATE SODIUM LIQ 100 MG/10 ML UDC GT SCH ×2 (08:13→16:07)
[2019-01-26] MEDS: PANTOPRAZOLE 40 MG/PACK PACK GT SCH (08:13)
[2019-01-26] MEDS: FOLIC ACID 1 MG TABLET GT SCH (08:13)
[2019-01-26] MEDS: ASCORBIC ACID 500 MG TABLET GT SCH (08:13)
[2019-01-26] MEDS: BENEFIBER 4 GM 1 EA PACKET GT SCH ×2 (08:13→16:06)
[2019-01-26] MEDS: LINAGLIPTIN 5 MG TABLET GT SCH (08:13)
[2019-01-26] MEDS: HEPARIN SODIUM, PORCINE 5000 UNITS/1 ML VIAL SQ SCH (08:16)
[2019-01-26] MEDS: HYDROGEL DRESSING 90 GM TUBE TP SCH (08:17)
[2019-01-26 16:00] VITALS: BP 124/50
--- NOTE | 2019-01-26 17:00 | NUR ---
RN NOTE PATIENT'S TEMPERATURE WAS 99.1F WHEN I RECHECKED IT. ON BEDSIDE REQUESTED TO NOT ADMINISTER TYLENOL. DID COLD MEASURES, ICE PACK ON BOTH AXILLARY
--- NOTE | 2019-01-26 17:53 | NUR ---
RN NOTE TALKED TO DR DYE, ORDERED CBC AND BMP FOR TOMORROW
--- NOTE | 2019-01-26 18:46 | NUR ---
RN CLOSING NOTE PATIENT IN BED NON VERBAL WITH EYES OPEN. ON BEDSIDE. ALL MEDS ARE GIVEN GT. PATIENT HAS A RIGHT UPPER ARM MIDLINE, SALINE LOCKED. HAS AN ORDER FOR WATER FLUSH 200ML EVERY 4 HOURS. GT FEEDING RUNNING AT 50ML/HR. NO APPARENT STRESS OR ANY PAIN. TURNED AND REPOSITIONED EVERY 2 HOURS. BED ON LOW POSITION. WILL ENDORSE TO NOC SHIFT RN.
--- NOTE | 2019-01-26 19:30 | NUR ---
RN NOTE, RECEIVED PATIENT IN BED, AWAKE A/O TO SELF, BREATHING EVEN AND UNLABORED, NO SOB/ACUTE DISTRESS NOTED AT THIS TIME, ON 2L O2 NC WITH OPTIMAL O2 SAT LEVEL, RIGHT UPPER ARM MIDLINE S/L, PATENT AND INTACT, GT IN PLACED PATENT AND INTACT, GT FEEDING GLUCERNA RUNNING AT 50ML/HR WELL AND PATIENT TOLERATED WELL, BED LOCKED AND LOW POSITION, JHONATAN LIGHT W/I REACH, WILL CONTINUE TO MONITOR CLOSELY
[2019-01-26] MEDS: INSULIN GLARGINE, 100 UNIT/ML CARTRIDGE SQ SCH (21:30)
[2019-01-27 04:00] VITALS: BP 141/55
[2019-01-27] MEDS: BLOOD SUGAR DIAGNOSTIC 1 EACH STRIP IN SCH ×2 (05:36→12:02)
[2019-01-27] MEDS: INSULIN REGULAR, HUMAN 100 UNIT/ML 3 ML VIAL SQ PRN ×2 (05:38→12:44)
[2019-01-27] MEDS: GLUCERNA 1.2 1,000 ML BOTTLE NG PRN (05:39)
[2019-01-27 06:32] LABS: BASOPHILS % (AUTO) 0.2 % (0.0-2.0); EOSINOPHILS % (AUTO) 1.2 % (0.0-6.0); HEMATOCRIT 24 % (33-45); HEMOGLOBIN 8.1 g/dL (11.5-14.8); LYMPHOCYTES % (AUTO) 27.9 % (20.0-44.0); MEAN CORPUSCULAR HGB CONC 35 g/dl (31.0-36.0); MEAN CORPUSCULAR VOLUME 109 fL (82-100); MONOCYTES % (AUTO) 13.3 % (2.0-12.0); NEUTROPHILS # (AUTO) 4.2 /CMM (1.8-8.9); NEUTROPHILS % (AUTO) 57.4 % (43.0-81.0); PLATELET COUNT (AUTO) 152 /CMM (150-450); RED BLOOD CELL COUNT(AUTO) 2.15 MIL/uL (4.0-5.2); WHITE BLOOD COUNT (AUTO) 7.2 K/uL (4.3-11.0)
--- NOTE | 2019-01-27 06:44 | NUR ---
RN NOTES, PATIENT IN BED, NO DISTRESS NOTED, BREATHING EVEN AND UNLABORED, WITH NO SIGNIFICANT CHANGE IN CONDITION DURING THE NIGHT, WILL ENDORSE CONTINUITY OF CARE TO ONCOMING NURSE.
[2019-01-27 07:02] LABS: CALCIUM, SERUM 8.8 mg/dL (8.5-10.1); CARBON DIOXIDE 24 mmol/L (21-32); CHLORIDE 108 mmol/L (98-107); CREATININE 1.1 mg/dL (0.6-1.3); GLUCOSE 201 mg/dL (74-106); POTASSIUM 4.1 mmol/L (3.5-5.1); SODIUM SERUM 142 mmol/L (136-145); UREA NITROGEN, BLOOD 27 mg/dL (7-18)
[2019-01-27 07:58] LABS: LYMPHOCYTES % (MANUAL) 26 % (16-48); MONOCYTES % (MANUAL) 16 % (0-11.0); NEUTROPHILS % (MANUAL) 58 (42-76)
[2019-01-27 08:00] VITALS: BP 86/49
[2019-01-27] MEDS: GLIMEPIRIDE 4 MG TABLET GT SCH (08:15)
[2019-01-27] MEDS: LINAGLIPTIN 5 MG TABLET GT SCH (08:15)
[2019-01-27] MEDS: ASPIRIN 81 MG TAB.CHEW GT SCH (08:16)
[2019-01-27] MEDS: CLOPIDOGREL BISULFATE 75 MG TABLET GT SCH (08:16)
[2019-01-27] MEDS: LEVOTHYROXINE SODIUM 75 MCG TABLET GT SCH (08:16)
[2019-01-27] MEDS: PANTOPRAZOLE 40 MG/PACK PACK GT SCH (08:16)
[2019-01-27] MEDS: CYANOCOBALAMIN 500 MCG TABLET GT SCH (08:16)
[2019-01-27] MEDS: FOLIC ACID 1 MG TABLET GT SCH (08:16)
[2019-01-27] MEDS: ACIDOPHILUS/BULGARICUS 1 EACH TAB.CHEW GT SCH (08:16)
[2019-01-27] MEDS: DOCUSATE SODIUM LIQ 100 MG/10 ML UDC GT SCH (08:16)
[2019-01-27] MEDS: BENEFIBER 4 GM 1 EA PACKET GT SCH (08:16)
[2019-01-27] MEDS: FERROUS SULFATE UDC 300 MG/5 ML UDC GT SCH (08:16)
[2019-01-27] MEDS: HYDROGEL DRESSING 90 GM TUBE TP SCH (08:18)
[2019-01-27] MEDS: ASCORBIC ACID 500 MG TABLET GT SCH (09:27)
[2019-01-27 12:00] VITALS: BP 134/60
== END 2019-01-27 13:35 | DRG 853 ==
LOC: ER 17:06 → TELE1 21:52 → MEDSG1 01-20 15:35
PROVIDERS: ADMIT Internal Medicine; ATTEND Internal Medicine
PROC: 05H533Z Insertion of Infusion Device into Right Subclavian Vein, Percutaneous Approach (ICD-10-PCS; 2019-01-18)
PROC: B546ZZA Ultrasonography of Right Subclavian Vein, Guidance (ICD-10-PCS; 2019-01-18)
PROC: 0JB80ZZ Excision of Abdomen Subcutaneous Tissue and Fascia, Open Approach (ICD-10-PCS; principal; 2019-01-19)
DX: A41.9 Sepsis, unspecified organism (principal); J18.9 Pneumonia, unspecified organism; N17.0 Acute kidney failure with tubular necrosis; G92 Toxic encephalopathy; J10.00 Influenza due to other identified influenza virus with unspecified type of pneumonia; N39.0 Urinary tract infection, site not specified; E87.0 Hyperosmolality and hypernatremia; G81.90 Hemiplegia, unspecified affecting unspecified side; E87.2 Acidosis; E03.9 Hypothyroidism, unspecified; Z88.0 Allergy status to penicillin; E11.9 Type 2 diabetes mellitus without complications; E78.5 Hyperlipidemia, unspecified; L98.9 Disorder of the skin and subcutaneous tissue, unspecified; E86.0 Dehydration; D64.9 Anemia, unspecified; R13.10 Dysphagia, unspecified; Z93.1 Gastrostomy status; R65.20 Severe sepsis without septic shock; Z86.73 Personal history of transient ischemic attack (TIA), and cerebral infarction without residual deficits; I25.10 Atherosclerotic heart disease of native coronary artery without angina pectoris; I50.9 Heart failure, unspecified; I11.0 Hypertensive heart disease with heart failure; D72.819 Decreased white blood cell count, unspecified; E83.52 Hypercalcemia; G25.81 Restless legs syndrome; G40.909 Epilepsy, unspecified, not intractable, without status epilepticus; M19.90 Unspecified osteoarthritis, unspecified site; Z79.4 Long term (current) use of insulin; Z79.82 Long term (current) use of aspirin
CPT/HCPCS: 36415; 36569; 70450-TC; 71045-TC; 76770-TC; 80048-TC; 80053-TC; 80061-TC; 80076-TC; 80202-TC; 81000-TC; 82570-TC; 82728-TC; 82962-TC; 83540-TC; 83605-TC; 83735-TC; 83880; 84100-TC; 84155-TC; 84300-TC; 84443-TC; 84484-TC; 85025-TC; 85730-TC; 87040-TC; 87070-TC; 87081-TC; 87086-TC; 87186-TC; 87400; A4216; A6248; A6402; G0378; J0696; J1644; J1815; J1956; J2185; J3370; J3475; J3490; J7030; J7040; J7050; J7060

== ENCOUNTER 2019-02-02 20:30 | Emergency (ER) | payer MEDICARE, OTHER ==
[~2019-02-02] VITALS: Ht 157.5 cm; Wt 61.3 kg
[~2019-02-02 20:30] MED LIST changes: +ACID1TAB12 GT; -ACYC800T GT; -BACL5TAB GT; +CEFT1VIA15 IV; -CIPR5DRO LEFTEYE; -COLL30OI TP; -FENO145T GT; +Hydrogel Dressing TP; +INSU100I26 SQ; -INSU100V7 SQ; -LEVO125T PO; +LEVO150T8 PO; -LEVO500T75 PEG; -MUPI1OIN NS; +OSEL75CA PO
--- NOTE | 2019-02-02 20:36 | NUR ---
PT RYAN FROM [facility]. C/O ABNORMAL HGB 6.9 DRAWN AT 1400 TODAY. PT NONVERBAL. RESPSONSIVE TO PAINFUL STIMULI. SPONTANEOUS EYE MOVEMENT. PT ON MONITOR IN BED 9 WITH AT BEDSIDE. WILL CONTINUE TO MONITOR.
--- NOTE | 2019-02-02 21:36 | NUR ---
BLOOD DRAWN FROM R MID LINE AND GIVEN TO LAB
[2019-02-02 21:41] LABS: BASOPHILS # (AUTO) 0.1 /CMM (0.0-0.2); BASOPHILS % (AUTO) 1.4 % (0.0-2.0); EOSINOPHILS % (AUTO) 2.4 % (0.0-6.0); HEMATOCRIT 21 % (33-45); HEMOGLOBIN 7.3 g/dL (11.5-14.8); LYMPHOCYTES # (AUTO) 1.6 /CMM (0.8-4.8); LYMPHOCYTES % (AUTO) 30.2 % (20.0-44.0); MEAN CORPUSCULAR HGB CONC 34 g/dl (31.0-36.0); MEAN CORPUSCULAR VOLUME 107 fL (82-100); MONOCYTES # (AUTO) 0.7 /CMM (0.1-1.30); MONOCYTES % (AUTO) 13.1 % (2.0-12.0); NEUTROPHILS # (AUTO) 2.8 /CMM (1.8-8.9); NEUTROPHILS % (AUTO) 52.9 % (43.0-81.0); PLATELET COUNT (AUTO) 302 /CMM (150-450); WHITE BLOOD COUNT (AUTO) 5.3 K/uL (4.3-11.0)
[2019-02-02 21:54] LABS: CALCIUM, SERUM 9.7 mg/dL (8.5-10.1); CARBON DIOXIDE 28 mmol/L (21-32); CHLORIDE 104 mmol/L (98-107); CREATININE 0.9 mg/dL (0.6-1.3); GLUCOSE 115 mg/dL (74-106); POTASSIUM 4.1 mmol/L (3.5-5.1); SODIUM SERUM 140 mmol/L (136-145); UREA NITROGEN, BLOOD 22 mg/dL (7-18)
[2019-02-02] MEDS ORDERED: Thiamine 100 MG in IV D5W 50 ML IV STA (22:04)
--- NOTE | 2019-02-02 22:21 | NUR ---
[facility] CALLED FOR TRANSPORT. [phone]. TRIP# [id number]
[2019-02-02 22:23] LABS: LYMPHOCYTES % (MANUAL) 33 % (16-48); MONOCYTES % (MANUAL) 10 % (0-11.0); NEUTROPHILS % (MANUAL) 57 (42-76)
[2019-02-02] MEDS ORDERED: Thiamine 100 MG/ML VIAL ONE (22:25)
[2019-02-02] MEDS ORDERED: FOLIC ACID 1 MG TABLET ONE (22:25)
[2019-02-02] MEDS ORDERED: FOLIC ACID 1 MG TABLET PO ONE (22:30)
[2019-02-02 22:45] VITALS: BP 126/72
--- NOTE | 2019-02-02 23:47 | NUR ---
Patient discharged to home in stable condition. Written and verbal after care instructions given. verbalizes understanding of instruction.
== END 2019-02-02 23:49 | disposition home or self-care (01) ==
LOC: ER 20:32
DX: D64.9 Anemia, unspecified (principal); E11.9 Type 2 diabetes mellitus without complications; I11.0 Hypertensive heart disease with heart failure; I50.9 Heart failure, unspecified; I25.10 Atherosclerotic heart disease of native coronary artery without angina pectoris; G25.81 Restless legs syndrome; E03.9 Hypothyroidism, unspecified; E78.5 Hyperlipidemia, unspecified; E86.0 Dehydration; Z88.0 Allergy status to penicillin; Z86.73 Personal history of transient ischemic attack (TIA), and cerebral infarction without residual deficits; Z88.8 Allergy status to other drugs, medicaments and biological substances; Z79.4 Long term (current) use of insulin; Z79.82 Long term (current) use of aspirin
CPT/HCPCS: 36415; 80048; 85025; 86850; 96365; 99283; J3411 ×2; J7060 ×2